=== PATIENT | male | born 1945 | race Caucasian/White ===

== ENCOUNTER → 2017-06-13 12:59 | Outpatient (CLI) | payer MEDICARE, SELFPAY ==
[2016-08-09 08:56] VITALS: BMI 28.8
--- NOTE | 2017-06-13 13:03 | ECHOD_ITS ---
Reason For Study: MV DISORDER Procedure This was a 2D Doppler, Color Flow transthoracic echocardiogram. Contrast injection was performed. Exam performed in department. Left Ventricle Mildly dilated left ventricle. The estimated ejection fraction is 45-50 %. There are regional wall motion abnormalities as specified. Infero-Basal: Severely Hypokinetic. Mid-Posterior: Severely Hypokinetic. Mid-Inferior: Severely Hypokinetic. Right Ventricle Normal size and thickness. Normal systolic function. Atria Normal left atrium. Normal right atrium. Normal atrial septum. Mitral Valve Mild diffuse mitral valve thickening. Peak transmitral valve gradient 12 mmHg. Mean transmitral valve gradient 6 mmHg. Trivial mitral valve insufficiency. An annuloplasty ring is noted in the mitral position. Normal functioning annuloplasty ring with normal gradients for MV repair. Tricuspid Valve Normal tricuspid valve. Trivial tricuspid valve insufficiency. Right ventricular systolic pressure estimated to be 49 mmHg. Mild pulmonary hypertension. Aortic Valve Trisinus/trileaflet aortic valve. Mild diffuse aortic valve thickening. Pulmonic Valve Normal pulmonic valve. Trivial pulmonic valve insufficiency. Great Vessels Normal aortic root. Normal arch. Normal inferior vena cava. Inferior vena cava collapse with sniff. Pericardium/Pleural No pericardial effusion. Medication 22 gauge I.V. with prn adaptor inserted into right arm. Diluted definity 3ml given slow IV push to enhance endocardial definition. MMode/2D Measurements & Calculations LVIDd: 5.1 cm IVSd: 0.93 cm LVOT diam: 2.0 cm LVIDs: 3.7 cm LVPWd: 0.86 cm LVOT area: 3.2 cm2 RVDd: 3.3 cm FS: 26.8 % Ao root diam: 3.3 cm LAV(MOD-bp): 50.2 ml EDV(MOD-sp4): 115.6 ml LA dimension: 3.5 cm LAV(MOD-bp) Indexed: 28.5 ml/m2 ESV(MOD-sp4): 66.4 ml LAV(MOD-sp2): 52.2 ml EF(MOD-sp4): 42.5 % LAV(MOD-sp4): 48.6 ml EDV(MOD-sp2): 118.7 ml SV(MOD-sp4): 49.2 ml SV(MOD-sp2): 33.5 ml EF(MOD-sp2): 28.2 % LA A4 area: 18.1 cm2 RA A4 area: 15.7 cm2 Doppler Measurements & Calculations MV E max gudelia: 161.3 cm/sec MV V2 max: 171.9 cm/sec Ao V2 max: 114.4 cm/sec MV A max gudelia: 127.9 cm/sec MV max P.8 mmHg Ao max P.2 mmHg MV E/A: 1.3 MV V2 mean: 113.7 cm/sec LY(V,D): 2.5 cm2 MV mean P.6 mmHg MV V2 VTI: 53.2 cm LV V1 max: 87.2 cm/sec PA V2 max: 88.4 cm/sec PI end-d gudelia: 136.9 cm/sec LV V1 max P.0 mmHg TR max gudelia: 283.3 cm/sec TR max P.0 mmHg Interpretation Summary Mildly dilated left ventricle. The estimated ejection fraction is 45-50 %. There are regional wall motion abnormalities as specified. Normal functioning annuloplasty ring with normal gradients for MV repair. Right ventricular systolic pressure estimated to be 49 mmHg. Mild pulmonary hypertension. Compared to echo report dated , MV rrepair has taken place with trivial remaiining MR. RVSP has increased from 34 to 49 mm Hg. Ordering Physician: Yemi Cristina Referring Physician: OC ARMENTA MD Performed By: Annita Mcfadden RDCS, RVT
== END ==
PROVIDERS: Family Provider Internal Medicine; PCP Internal Medicine; Visit Provider Internal Medicine Cardiovascular Disease
DX: I34.8 Other nonrheumatic mitral valve disorders (principal)
CPT/HCPCS: 93306; Q9957; A4216; C8929

== ENCOUNTER 2017-08-12 07:23 | Day surgery (SDC) | payer MEDICARE, SELFPAY ==
[2016-08-09 08:56] VITALS: BMI 28.8
[2017-08-12 07:43] VITALS: BP 126/72; PULSE 70; RESP 16; TEMP 36.6; O2SAT 100; BMI 26.1
[2017-08-12 08:45] VITALS: BP 109/68; BP 126/72; PULSE 67; RESP 16; TEMP 36.4; O2SAT 100
[2017-08-12 08:50] VITALS: BP 124/70; BP 126/72; PULSE 67; RESP 16; O2SAT 100
[2017-08-12 08:55] VITALS: BP 125/74; BP 126/72; PULSE 70; RESP 18; O2SAT 100
[2017-08-12 09:00] VITALS: BP 123/73; BP 126/72; PULSE 74; RESP 16; TEMP 36.8; O2SAT 99
--- NOTE | 2017-08-12 09:17 | PCM.OPRPT ---
Problem List (1) Screen for colon cancer Status: Acute Report of Operation Date of Procedure: 08/12/17 Pre-Operative Diagnosis: Screening colonoscopy Post-Operative Diagnosis: Diverticulosis Surgery/Procedure Performed:: Colonoscopy Description of Procedure: The major risks and benefits associated with the procedure were explained to the patient in detail. The patient verbalized understanding and agreement with the same. The patient was brought to the endoscopy suite. After adequate sedation was achieved, the patient was placed in the left lateral decubitus position and a digital rectal exam was performed. This examination was within normal limits. A well-lubricated colonoscope was then inserted into the rectum and advanced under direct visualization to the level of the cecum. The bowel prep was good. The cecum was identified by both visual and anatomic landmarks. A photograph was taken of the end of the cecum. The scope was then fully withdrawn while examining the color, texture, anatomy and integrity of the mucosa from the cecum to the anal canal. The findings were consistent with normal colonic mucosa. Patient did have diverticulosis of the sigmoid colon. Over 6 minutes were taken to examine the colonic mucosa. The patient did have diverticulosis of the sigmoid colon. Upon reaching the rectum the scope was retroflexed to examine the distal rectal vault. The scope was then straightened and was completely retrieved upon exiting the anal canal and the procedure was terminated. The patient was then transferred to the recovery room in stable condition. Recommendations for follow up: no need for further screening colonoscopy
[2017-08-12 09:40] VITALS: BP 126/72
--- NOTE | 2017-08-15 10:14 | H&P.OPEN ---
Past Medical/Surgical History - Planned Operation Planned Operative Procedure/s: colonoscopy Date of Operative Procedure: 08/12/17 Permit Signed: No S.O.S: No Is This Patient Having a Total Joint: No - Previous Hospitalizations/Surgeries HX Hospitalizations: Yes HX of Surgeries: hernia repair. open heart/repair of mitral valve 2016. heart stent 2016 Any Problems With Anesthesia: No You/Your Family Experience Fever (Hyperthermia) With Anes: No Cholinesterase deficiency: No - Cardiovascular Hx Chest Pain within Last 2 months: No Hx of Irregular Heartbeat and/or Afib: No - murmur/follows with dr martin/last visit 02/2017 Hx Heart Attack: Yes - 2017 Hx Congestive Heart Failure: No Hx Rheumatic Fever: No Hx Hypertension: Yes - controlled with meds Hx Internal Defibrillator: No Hx Pacemaker: No Hx Cardiac Catheterization: Yes - 2016 [facility] What facility was last heart cath performed: [facility] Date of last Heart Cath: 2016 Hx Cardiac Surgery/Stents/Etc.: Yes - mitral valve repair and stent 2016 Hx Stress Test: No - echo 2018 [facility] 2016 HX Edema: No Hx Pain in Legs when Walking/Leg Cramps: Yes - cramps prn - Respiratory Chronic Cough: No HX of Shortness of Breath: No Hoarseness: No Hx Chronic Obstructive Pulmonary Disease (COPD): No Hx Asthma: No Hx Emphysema: No Hx Sleep Apnea: No CPAP: No BIPAP: No Hx Oxygen Use at Home: No Hx Respiratory Tract Infection/Cold (presently): No Do You Snore Loudly (louder than talking or can be heard): Yes Do You Often Feel Tired/ Fatigued/ Sleepy Dring Daytime?: Yes Has Anyone Observed You Stop Breathing During Sleep?: Yes Result (for STOP score): Positive Hx Smoking: No Smoking Status: Never smoker - Gastrointestinal Hx Gastroesophageal Reflux: Yes Controlled With Meds: Yes Hx Gastrointestinal Disorders: No Hx Gastrointestinal Bleed: No Hx Ulcer: No Hx Hiatal Hernia: Yes Difficulty Chewing/Swallowing: Yes - in the past Recent Onset of Swallowing Problems: No Special diet followed at home: No Hx Unplanned Weight Loss of 20#: No HX Unplanned Weight Gain of 20#: No - Neurological Hx Seizures: No HX Syncope/Blackout Spells/Unconsciousness: No Hx CVA/Stroke: No Hx Transient Ischemic Attacks (TIA): No Hx Multiple Sclerosis: No Hx Parkinson's Disease: No Hx Head/Neck Injury: No Hx Headaches: No Hx Back Injury/Pain: Yes - lower back pain in the past Recent Onset of Speech Difficulty: No Restless Legs: No Does patient have nerve stimulator: No Patient instructed to have device shut off: No Rep notified?: No - Blood Disorder Hx Leukemia: No Bleeding Tendencies: No Hx Deep Vein Thrombosis: No Hx High Cholesterol: Yes - on med Blood Transmitted Disease: No Hx Hepatitis: No Hx Cirrhosis: No Hx Anemia: No Hx Blood Disorders: No - Genitourinary Hx Renal Disease: No Hx Dialysis: No - Musculoskeletal Hx Arthritis: Yes Hx Rheumatoid Arthritis: No Hx Gout: No Recent Onset of an Orthopedic Problem: No - Endocrine Hx Diabetes: No Thyroid Disease: No Hx Steroid Therapy: No - Psycho/Social Hx Substance Use: No Hx Alcohol Use: No Hx Anxiety: No Hx Depression: No Mental Illness: No Hx Dementia: No - Miscellaneous Hx Cancer: No Recent Exposure to Contagious Disease: No Active MRSA: No Hx of C-Diff: No Any Loose Teeth: No Allergies No Known Allergies Allergy (Verified 07/12/17 12:50) Home Medications Medication Instructions Recorded Aspirin [Aspirin, Baby] 81 mg PO QHS 08/07/16 Esomeprazole Mag Trihydrate 20 mg PO DAILY 08/07/16 [Nexium] Ticagrelor [Brilinta] 90 mg PO BID #60 tab 08/10/16 losartan 50 mg tablet 50 mg PO QDAY #90 tab 05/16/17 atorvastatin 80 mg tablet 80 mg PO QHS #30 tab 07/25/17 metoprolol tartrate 25 mg tablet 12.5 mg PO BID #90 tab 07/25/17 Amlodipine Besylate [Norvasc] 5 mg PO QHS 08/08/17 Fluticasone 0.05% [Flonase Nasal 2 spray NASAL DAILY PRN 08/08/17 [place]] Maternal Family History: Family History (Last Updated 07/12/17 @ 12:49 by Aylin Maciel) Mother CVA (cerebral vascular accident) Brain tumor (benign) Hypertension No pertinent history Paternal Family History: Family History (Last Updated 07/12/17 @ 12:49 by Aylin Maciel) Mother CVA (cerebral vascular accident) Brain tumor (benign) Hypertension No pertinent history - Discharge Is Pt Admitted From a Custodial, or a [facility]: No Who Could Help: After D/C, Where Do you Plan to Go: Return Home - From the PAT History Number of Risk Factors: 2 - Physical Exam General: Alert, Oriented x3, Cooperative Lungs: Normal air movement Cardiovascular: Regular rate, Regular Rhythm Abdomen: Soft, Non Tender, Non-Distended Vital Signs Temp Pulse Resp BP Pulse Ox 98.2 F 74 16 123/73 H 99 08/12/17 09:00 08/12/17 09:00 08/12/17 09:00 08/12/17 09:00 08/12/17 09:00 Oxygen Delivery Method Room Air Weight: 156 lb 15.506 oz Body Mass Index (BMI) 26.1 Assessment/Plan 72-year-old male for screening colonoscopy 1. Patient here for screening colonoscopy. He did get clearance from Dr. Martin to come off this Brilinta for surgery. I will give him a dose of IV antibiotics for his mitral valve. 2. I explained endoscopy in detail to the patient. I explained the risks including but not limited to stroke or heart attack with anesthesia, perforation of the GI tract, bleeding, infection. I explained that any of these could necessitate further emergency surgery. The patient understands and all questions were answered sufficiently. The patient wishes to proceed with procedure. Stephen Canchola MD Pager: [facility] [address] [place] [address], [address] [place] [address] Office: Surgery Risks - Colonoscopy Risks Include but are not Limited To: Risks include but are not limited to: Bleeding, perforation requiring further surgery, inability to complete colonoscopy requiring barium enema.
--- NOTE | 2017-08-15 10:17 | HP.PCM_ITS ---
Past Medical/Surgical History - Planned Operation Planned Operative Procedure/s: colonoscopy Date of Operative Procedure: 08/12/17 Permit Signed: No S.O.S: No Is This Patient Having a Total Joint: No - Previous Hospitalizations/Surgeries HX Hospitalizations: Yes HX of Surgeries: hernia repair. open heart/repair of mitral valve 2016. heart stent 2016 Any Problems With Anesthesia: No You/Your Family Experience Fever (Hyperthermia) With Anes: No Cholinesterase deficiency: No - Cardiovascular Hx Chest Pain within Last 2 months: No Hx of Irregular Heartbeat and/or Afib: No - murmur/follows with dr martin/last visit 02/2017 Hx Heart Attack: Yes - 2017 Hx Congestive Heart Failure: No Hx Rheumatic Fever: No Hx Hypertension: Yes - controlled with meds Hx Internal Defibrillator: No Hx Pacemaker: No Hx Cardiac Catheterization: Yes - 2016 [facility] What facility was last heart cath performed: [facility] Date of last Heart Cath: 2016 Hx Cardiac Surgery/Stents/Etc.: Yes - mitral valve repair and stent 2016 Hx Stress Test: No - echo 2018 [facility] 2016 HX Edema: No Hx Pain in Legs when Walking/Leg Cramps: Yes - cramps prn - Respiratory Chronic Cough: No HX of Shortness of Breath: No Hoarseness: No Hx Chronic Obstructive Pulmonary Disease (COPD): No Hx Asthma: No Hx Emphysema: No Hx Sleep Apnea: No CPAP: No BIPAP: No Hx Oxygen Use at Home: No Hx Respiratory Tract Infection/Cold (presently): No Do You Snore Loudly (louder than talking or can be heard): Yes Do You Often Feel Tired/ Fatigued/ Sleepy [place] Daytime?: Yes Has Anyone Observed You Stop Breathing During Sleep?: Yes Result (for STOP score): Positive Hx Smoking: No Smoking Status: Never smoker - Gastrointestinal Hx Gastroesophageal Reflux: Yes Controlled With Meds: Yes Hx Gastrointestinal Disorders: No Hx Gastrointestinal Bleed: No Hx Ulcer: No Hx Hiatal Hernia: Yes Difficulty Chewing/Swallowing: Yes - in the past Recent Onset of Swallowing Problems: No Special diet followed at home: No Hx Unplanned Weight Loss of 20#: No HX Unplanned Weight Gain of 20#: No - Neurological Hx Seizures: No HX Syncope/Blackout Spells/Unconsciousness: No Hx CVA/Stroke: No Hx Transient Ischemic Attacks (TIA): No Hx Multiple Sclerosis: No Hx Parkinson's Disease: No Hx Head/Neck Injury: No Hx Headaches: No Hx Back Injury/Pain: Yes - lower back pain in the past Recent Onset of Speech Difficulty: No Restless Legs: No Does patient have nerve stimulator: No Patient instructed to have device shut off: No Rep notified?: No - Blood Disorder Hx Leukemia: No Bleeding Tendencies: No Hx Deep Vein Thrombosis: No Hx High Cholesterol: Yes - on med Blood Transmitted Disease: No Hx Hepatitis: No Hx Cirrhosis: No Hx Anemia: No Hx Blood Disorders: No - Genitourinary Hx Renal Disease: No Hx Dialysis: No - Musculoskeletal Hx Arthritis: Yes Hx Rheumatoid Arthritis: No Hx Gout: No Recent Onset of an Orthopedic Problem: No - Endocrine Hx Diabetes: No Thyroid Disease: No Hx Steroid Therapy: No - Psycho/Social Hx Substance Use: No Hx Alcohol Use: No Hx Anxiety: No Hx Depression: No Mental Illness: No Hx Dementia: No - Miscellaneous Hx Cancer: No Recent Exposure to Contagious Disease: No Active MRSA: No Hx of C-Diff: No Any Loose Teeth: No Allergies No Known Allergies Allergy (Verified 07/12/17 12:50) Home Medications Medication Instructions Recorded Aspirin [Aspirin, Baby] 81 mg PO QHS 08/07/16 Esomeprazole Mag Trihydrate 20 mg PO DAILY 08/07/16 [Nexium] Ticagrelor [Brilinta] 90 mg PO BID #60 tab 08/10/16 losartan 50 mg tablet 50 mg PO QDAY #90 tab 05/16/17 atorvastatin 80 mg tablet 80 mg PO QHS #30 tab 07/25/17 metoprolol tartrate 25 mg tablet 12.5 mg PO BID #90 tab 07/25/17 Amlodipine Besylate [Norvasc] 5 mg PO QHS 08/08/17 Fluticasone 0.05% [Flonase Nasal 2 spray NASAL DAILY PRN 08/08/17 [facility]] Maternal Family History: Family History (Last Updated 07/12/17 @ 12:49 by Aylin Maciel) Mother CVA (cerebral vascular accident) Brain tumor (benign) Hypertension No pertinent history Paternal Family History: Family History (Last Updated 07/12/17 @ 12:49 by Aylin Maciel) Mother CVA (cerebral vascular accident) Brain tumor (benign) Hypertension No pertinent history - Discharge Is Pt Admitted From a [facility], or a [facility]: No Who Could Help: After D/C, Where Do you Plan to Go: Return Home - From the PAT History Number of Risk Factors: 2 - Physical Exam General: Alert, Oriented x3, Cooperative Lungs: Normal air movement Cardiovascular: Regular rate, Regular Rhythm Abdomen: Soft, Non Tender, Non-Distended Vital Signs Temp Pulse Resp BP Pulse Ox 98.2 F 74 16 123/73 H 99 08/12/17 09:00 08/12/17 09:00 08/12/17 09:00 08/12/17 09:00 08/12/17 09:00 Oxygen Delivery Method Room Air Weight: 156 lb 15.506 oz Body Mass Index (BMI) 26.1 Assessment/Plan 72-year-old male for screening colonoscopy 1. Patient here for screening colonoscopy. He did get clearance from Dr. Martin to come off this Brilinta for surgery. I will give him a dose of IV antibiotics for his mitral valve. 2. I explained endoscopy in detail to the patient. I explained the risks including but not limited to stroke or heart attack with anesthesia, perforation of the GI tract, bleeding, infection. I explained that any of these could necessitate further emergency surgery. The patient understands and all questions were answered sufficiently. The patient wishes to proceed with procedure. Stephen Canchola MD Pager: [facility] [address] [place] [address], [address] [place] [address] Office: Surgery Risks - Colonoscopy Risks Include but are not Limited To: Risks include but are not limited to: Bleeding, perforation requiring further surgery, inability to complete colonoscopy requiring barium enema.
== END 2017-08-12 09:52 | disposition home or self-care (01) ==
LOC: EN 07:24 → AC 07:25
PROVIDERS: Family Provider Internal Medicine; PCP Internal Medicine; Visit Provider Surgery
PROC: 0DJD8ZZ Inspection of Lower Intestinal Tract, Via Natural or Artificial Opening Endoscopic (ICD-10-PCS; CPT 45378; principal; 2017-08-12 08:25)
DX: Z12.11 Encounter for screening for malignant neoplasm of colon (principal); K57.30 Diverticulosis of large intestine without perforation or abscess without bleeding; I25.2 Old myocardial infarction; I10 Essential (primary) hypertension; K21.9 Gastro-esophageal reflux disease without esophagitis; E78.00 Pure hypercholesterolemia, unspecified; M19.90 Unspecified osteoarthritis, unspecified site; R01.1 Cardiac murmur, unspecified; Z95.2 Presence of prosthetic heart valve; Z79.82 Long term (current) use of aspirin; Z79.899 Other long term (current) drug therapy
CPT/HCPCS: G0121; J7120; J3490

== ENCOUNTER 2018-06-08 20:36 | Inpatient (IN) | payer MEDICARE, SELFPAY ==
[2016-08-09 08:56] VITALS: BMI 28.8
[2018-04-26 13:33] VITALS: BMI 26.9
[2018-06-08 20:38] VITALS: BP 170/97; PULSE 99; RESP 18; TEMP 36.8; O2SAT 99; BMI 25.7
[2018-06-08 20:59] VITALS: BP 191/90; PULSE 97; RESP 19; O2SAT 100
--- NOTE | 2018-06-08 21:04 | EKG12_ITS ---
Test Reason : Blood Pressure : / mmHG Vent. Rate : 101 BPM Atrial Rate : 101 BPM P-R Int : 144 ms QRS Dur : 140 ms QT Int : 392 ms P-R-T Axes : 072 -83 055 degrees QTc Int : 508 ms Sinus tachycardia Right bundle branch block Left anterior fascicular block Bifascicular block Abnormal ECG Confirmed by JOSE ANDRADE, SHELLY ([id number]), sports editor SARAVANAN SPENCE ([id number]) on 06/12/2018 1:12:10 PM Referred By: Confirmed By:SHELLY GARCIA MD
--- NOTE | 2018-06-08 21:04 | RAD_ITS ---
STUDY: X-RAY CHEST REASON FOR EXAM: Male, 72 years old. Chest pain TECHNIQUE: Portable chest COMPARISON: 08/10/1969 FINDINGS: There are sternal wires. There are benign calcified mediastinal lymph nodes. The lungs are clear and expanded. There is no demonstrated pleural abnormality. Normal size heart. Normal mediastinum and catina. Normal visualized pulmonary arteries. Normal visualized aortic arch and descending thoracic aorta. Normal visualized thoracic spine. Normal visualized ribs, clavicles, and shoulders. There is no demonstrated abnormality of the visualized soft tissue structures of the upper abdomen. RAD/Chest 1 View (Portable) IMPRESSION: No acute process Electronically Signed: Jose Spicer, at 22:05 EST Tel , Service support ,
[2018-06-08 21:28] LABS: Absolute Lymphocyte Count 1.29 X10^3/ul (0.83-4.51); Absolute Neutrophil Count 6.4 X10^3/uL (2.0-7.7); Basophil# 0.02 X10^3/uL; Basophil% 0.2 % (0-1); Eosinophil# 0.16 X10^3/uL; Eosinophils% 1.8 % (0-5); Hematocrit 43.7 % (40-54); Hemoglobin 14.3 g/dl (13.0-16.5); Lymphocyte # 1.29 X10^3/ul (4.0); Lymphocyte % 14.6 % (19-41); Mean Corp Hgb Conc 32.7 g/gl (32-36); Mean Corpuscular Hgb 27.6 pg (27.0-32.0); Mean Corpuscular Volume 84.2 fL (80-94); Monocyte# 0.91 X10^3/uL; Monocyte% 10.3 % (0-10); Neutrophil # 6.41 X10^3/uL (2.7-7.7); Neutrophil % 72.9 % (47-70); Platelet Count 227 K/mm3 (150-450); RBC Distribution Width CV 13.9 % (11.6-14.6); Red Blood Count 5.19 M/mm3 (4.6-6.2); White Blood Count 8.8 K/mm3 (4.4-11.0)
[2018-06-08] MEDS: Aspirin 81 MG TAB.CHEW 324 MG PO (21:35)
[2018-06-08 21:41] LABS: Anion Gap 7 (5-15); BUN 16 mg/dL (7-18); BUN/Creat Ratio 11.2 RATIO (10-20); Calcium,Total 8.8 mg/dL (8.5-10.1); Chloride 108 mmol/L (98-107); Creatinine, Serum 1.43 mg/dL (0.70-1.30); EST Glomerular Filtration Rate 51 mL/min (>60); Est Glom Filt Rate - Afr Amer 62 mL/min (>60); Estimated Creatinine Clearance 39.42 ml/min; Glucose 99 mg/dL (74-106); Lipase 120 U/L (73-393); Potassium 3.5 mmol/L (3.5-5.1); Sodium Level 141 mmol/L (136-145)
[2018-06-08 21:48] LABS: POSITIVE COUNT NO; POSITIVE DIFFERENTIAL NO; POSITIVE MORPHOLOGY NO
--- NOTE | 2018-06-08 21:50 | CT_ITS ---
STUDY: CT ABDOMEN AND PELVIS WITH CONTRAST REASON FOR EXAM: Male, 72 years old. Abdominal pain RADIATION DOSAGE (If Supplied By Facility): CTDIvol = ( 17.46 ) mGy, DLP = ( 1868.48 ) mGycm TECHNIQUE: Transaxial images were obtained from the dome of the diaphragm to the symphysis pubis without oral contrast. Isovue 300 100ML IV was administered. Sagittal and coronal images were reconstructed. Individualized dose optimization techniques were used for this CT. COMPARISON: None. FINDINGS: There is a small right pleural effusion and there is right basilar subsegmental atelectasis. There are sternal wires. There is likely left atrial clipping, epidural stimulator wire There are 3 2 mm hypodensities within the right lobe of the liver. There are calcified gallstones. There are likely small calculi within the cystic duct. There is Mild stranding within the fat around the gallbladder. There may be mild gallbladder wall thickening. There is mild gallbladder distention. Normal spleen. Normal pancreas. Normal bilateral adrenal glands. Normal right kidney. Normal left kidney. There is a small hiatal hernia. There is mild wall thickening of the lower esophagus. Normal visualized stomach. Normal small intestine. There is colonic diverticulosis. The appendix is visualized and appears normal. Normal abdominal aorta. Normal inferior vena cava. Normal retroperitoneum. Normal urinary bladder. Normal abdominal wall. There are multilevel degenerative changes of the lumbar spine. CT/Abdomen/Pelvis W IV Cont ONLY IMPRESSION: Findings suspicious for for acute cholecystitis with calcified gallstones likely small stones in the cystic duct, mild gallbladder distention, mild stranding around the gallbladder and possible mild gallbladder wall thickening, this should be correlated with physical exam and right upper quadrant ultrasound Colonic diverticulosis no diverticulitis small hiatal hernia, wall thickening of the lower esophagus which may be secondary to reflux esophagitis however pathologic wall thickening cannot be excluded further evaluation with endoscopy or barium swallow recommended Previous cardiothoracic surgery sternal wires, atrial clipping, epidural stimulator wire 3 an 2 mm hypodensities within the liver too small to characterize most likely hepatic cysts Periumbilical fatty hernia Small right pleural effusion and right basilar subsegmental atelectasis Multilevel degenerative changes of the lumbar spine Electronically Signed: Jose Spicer, at 23:45 EST Tel , Service support ,
--- NOTE | 2018-06-08 21:50 | CT_ITS ---
STUDY: CTA CHEST REASON FOR EXAM: Male, 72 years old. Abdominal pain chest pain, hypertension RADIATION DOSAGE (If Supplied By Facility): CTDIvol = ( 17.46 ) mGy, DLP = ( 1868.48 ) mGycm TECHNIQUE: The examination was performed with the intravenous administration of Isovue 370 100ML IV. Post-processing of the angiographic images was performed, with multiplanar reformation and 3D reconstruction. Individualized dose optimization techniques were used for this CT. COMPARISON: None. FINDINGS: There is scattered pulmonary scarring and a few scattered bulla. There are 5 mm and smaller scattered pulmonary nodules within the upper, right middle and lower lobes. Normal enhancement of the main pulmonary artery and right and left pulmonary arteries. Normal enhancement of the bilateral peripheral pulmonary arteries. There is no demonstrated pulmonary embolism. Normal thoracic aorta and visualized great vessels. There is no demonstrated aortic dissection. Normal heart and pericardium. Normal mediastinum. Normal hilar regions. Normal visualized trachea and bronchi. The lungs are well expanded. Normal pulmonary parenchyma. Normal pleura. Normal chest wall structures. Normal osseous structures. There are calcified gallstones. There are sternal wires and mediastinal clips. There is calcific coronary atherosclerosis. There is likely prior atrial clipping. There is small right pleural effusion with right basilar subsegmental atelectasis. There are calcified gallstones. CT/CTA Chest W/WO Contrast IMPRESSION: Normal CTA chest examination, without a demonstrated pulmonary embolism or arterial dissection. Scattered small 5 mm and smaller pulmonary nodules likely benign six-month follow-up recommended for stability Scattered mild pulmonary scarring and few scattered bulla small right pleural effusion, right basilar subsegmental atelectasis Cholelithiasis Electronically Signed: Jose Spicer, at 23:30 EST Tel , Service support ,
--- NOTE | 2018-06-08 22:50 | ED.VISSUMM ---
- ER Visit Summary Date of Service: 06/08/18 Chief Complaint: Chest pain, abdominal pain. History of Present Illness: The patient is a 72 M presenting with chest pain, abdominal pain, dizziness. Patient states he started having epigastric abdominal pain which radiates to his chest. He also complains of pain between his shoulder blades. He has had dizziness with no syncope. He states this feels similar to his symptoms when he had his MT. He denies shortness of breath. Denies nausea or vomiting. Denies fever or other complaints. He has a history of CAD, MT, CHF, hypertension, hyperlipidemia, GERD, mitral valve repair. Physical Examination: Vitals are stable. Patient is afebrile. Alert no acute distress. HEENT exam is unremarkable. Neck is supple. Lungs are clear and equal bilaterally. Heart is regular rate and rhythm. Abdomen is soft mild epigastric tenderness with no rebound or guarding Extremities are unremarkable. Skin is warm and dry. No focal neurologic deficit. Remainder of exam is unremarkable. Emergency Department Course and Treatment: Patient was given aspirin on arrival. EKG is sinus tachycardia rate of 101 with right bundle branch block, unchanged from previous. CBC, chemistries unremarkable other than creatinine 1.43. Lipase is 120. Troponin is negative. Chest x-ray shows no acute process. CTA chest shows normal CTA chest examination, without a demonstrated pulmonary embolism or arterial dissection. Scattered small 5 mm and smaller pulmonary nodules likely benign six-month follow-up recommended for stability. Scattered mild pulmonary scarring and few scattered bulla small right pleural effusion, right basilar subsegmental atelectasis. Cholelithiasis. CT abdomen pelvis shows findings suspicious for for acute cholecystitis with calcified gallstones likely small stones in the cystic duct, mild gallbladder distention, mild stranding around the gallbladder and possible mild gallbladder wall thickening, this should be correlated with physical exam and right upper quadrant ultrasound. Colonic diverticulosis no diverticulitis, small hiatal hernia, wall thickening of the lower esophagus which may be secondary to reflux esophagitis however pathologic wall thickening cannot be excluded further evaluation with endoscopy or barium swallow recommended Previous cardiothoracic surgery sternal wires, atrial clipping, epidural stimulator wire. Ultrasound is obtained and will be checked out to oncoming physician. Disposition: pending US results Impression: Chest pain/abdominal pain This note was generated with [employer] dictation software. It may contain incorrect words, spelling, and punctuation that were not noted in review of the chart prior to signing ED Disposition - Plan for ED Patient: Referrals: Javier Silvestre MD [Primary Care Provider] -
--- NOTE | 2018-06-08 22:53 | ED.DCSUM_ITS ---
- ER Visit Summary Date of Service: 06/08/18 Chief Complaint: Chest pain, abdominal pain. History of Present Illness: The patient is a 72 M presenting with chest pain, abdominal pain, dizziness. Patient states he started having epigastric abdominal pain which radiates to his chest. He also complains of pain between his shoulder blades. He has had dizziness with no syncope. He states this feels similar to his symptoms when he had his RI. He denies shortness of breath. Denies nausea or vomiting. Denies fever or other complaints. He has a history of CAD, RI, CHF, hypertension, hyperlipidemia, GERD, mitral valve repair. Physical Examination: Vitals are stable. Patient is afebrile. Alert no acute distress. HEENT exam is unremarkable. Neck is supple. Lungs are clear and equal bilaterally. Heart is regular rate and rhythm. Abdomen is soft mild epigastric tenderness with no rebound or guarding Extremities are unremarkable. Skin is warm and dry. No focal neurologic deficit. Remainder of exam is unremarkable. Emergency Department Course and Treatment: Patient was given aspirin on arrival. EKG is sinus tachycardia rate of 101 with right bundle branch block, unchanged from previous. CBC, chemistries unremarkable other than creatinine 1.43. Lipase is 120. Troponin is negative. Chest x-ray shows no acute process. CTA chest shows normal CTA chest examination, without a demonstrated pulmonary embolism or arterial dissection. Scattered small 5 mm and smaller pulmonary nodules likely benign six-month follow-up recommended for stability. Scattered mild pulmonary scarring and few scattered bulla small right pleural effusion, right basilar subsegmental atelectasis. Cholelithiasis. CT abdomen pelvis shows findings suspicious for for acute cholecystitis with calcified gallstones likely small stones in the cystic duct, mild gallbladder distention, mild stranding around the gallbladder and possible mild gallbladder wall thickening, this should be correlated with physical exam and right upper quadrant ultrasound. Col onic diverticulosis no diverticulitis, small hiatal hernia, wall thickening of the lower esophagus which may be secondary to reflux esophagitis however pathologic wall thickening cannot be excluded further evaluation with endoscopy or barium swallow recommended Previous cardiothoracic surgery sternal wires, atrial clipping, epidural stimulator wire. Ultrasound is obtained and will be checked out to oncoming physician. Disposition: pending US results Impression: Chest pain/abdominal pain This note was generated with [employer] software. It may contain incorrect words, spelling, and punctuation that were not noted in review of the chart prior to signing ED Disposition - Plan for ED Patient: Referrals: Javier Silvestre MD [Primary Care Provider] -
[2018-06-08 23:25] VITALS: BP 133/76; PULSE 99; RESP 14; O2SAT 95
--- NOTE | 2018-06-08 23:49 | US_ITS ---
HISTORY: ABD PAIN EXAM/TECHNIQUE: US Abdomen RUQ (limited): COMPARISON: 06/08/18 CT abdomen pelvis. FINDINGS: # of images incl. paperwork: 113 Liver with no acute findings. Scattered granulomas again demonstrated. Gallbladder distended with several small gallstones including extending into the gallbladder neck, and with sludge. Olivares sign was negative. By my measurement the gallbladder wall measures 4 mm thick. Small amount of pericholecystic fluid. Comment both about 5 mm diameter which is normal. Pancreas obscured by bowel gas. Right kidney normal. Small right pleural effusion is visible. US/Gallbladder IMPRESSION: Ultrasound findings (distended gallbladder with gallstones and wall thickening and pericholecystic fluid) concerning for acute calculus cholecystitis; although Olivares sign was negative as per the technologist. at 0100 Reported and signed by: Fred Mcginnis MD Electronically Signed: Fred Mcginnis, at 0:59 EST Tel , Service support ,
[2018-06-09] VITALS (16 sets, daily range): BP systolic 90–144; BP diastolic 60–95; PULSE 82–111; RESP 14–19; TEMP 36.5–38.2; O2SAT 89–100; BMI 26.6
[2018-06-09 00:10] LABS: AST(SGOT) 32 U/L (15-37); Alanine Aminotransfer ALT/SGPT 32 U/L (16-61); Albumin, Serum 4.1 g/dL (3.2-5.0); Alkaline Phosphatase 108 U/L (45-117); Bilirubin, Direct 0.14 mg/dL (0.00-0.30); Globulin 3.9 g/dL (2.2-4.2)
--- NOTE | 2018-06-09 02:07 | PCM.HP.STD ---
Problem List (1) Acute cholecystitis Status: Acute History of Present Illness Date of Admission: 06/09/18 The patient is a 72 year old M who had acute onset epigastric pain this afternoon. The patient reports no nausea or vomiting. Patient did report he had right upper quadrant pain when the ultrasound was being performed. He is still complaining of epigastric tenderness but he says it has improved. Past Medical History Past Medical History (Chronic Problems): Chronic Problems (Last Reviewed 10/24/17 @ 13:33 by Jennifer Turner) GERD (gastroesophageal reflux disease) (Chronic) Hyperlipemia (Chronic) History of mitral valve repair (Chronic 01/19/17) MVR w/ Quadrangular resection of the P2 scallop and placement of a 26 mm Guilherme EdwardsAnnuloplasty Band w/ PENELOPE Occlusion using a 40mm AtriClip 01/19/2017 Naif Caicedo Right bundle branch block (Chronic) Nonrheumatic mitral (valve) insufficiency (Chronic) History of coronary artery stent placement (Chronic 08/07/16) PCI-JOSHUA-Mid Cx w/ 4.0 x 20 mm and 4.0 x 16 mm Synergy MR JOSHUA 08/07/16 Atherosclerosis of coronary artery of platinum heart without angina pectoris (Chronic) PCI-JOSHUA-Mid Cx w/ 4.0 x 20 mm and 4.0 x 16 mm Synergy MR JOSHUA 08/07/16 Chronic diastolic (congestive) heart failure (Chronic) Hyperlipidemia (Chronic) Hypertension (Chronic) Non-ST elevated myocardial infarction (Chronic) Medical History: Medical History (Last Reviewed 10/24/17 @ 13:33 by Jennifer Turner) Hyperlipemia (Chronic) E78.5 Right bundle branch block (Chronic) I45.10 Nonrheumatic mitral (valve) insufficiency (Chronic) I34.0 Atherosclerosis of coronary artery of platinum heart without angina pectoris (Chronic) I25.10 PCI-JOSHUA-Mid Cx w/ 4.0 x 20 mm and 4.0 x 16 mm Synergy MR JOSHUA 08/07/16 Chronic diastolic (congestive) heart failure (Chronic) I50.32 Hyperlipidemia (Chronic) E78.5 Hypertension (Chronic) I10 Non-ST elevated myocardial infarction (Chronic) I21.4 GERD (gastroesophageal reflux disease) K21.9 Allergies No Known Allergies Allergy (Verified 06/08/18 20:40) Home Medications: Ambulatory Orders Medication Instructions Recorded Aspirin [Aspirin, Baby] 81 mg PO QHS 08/07/16 Esomeprazole Mag Trihydrate 20 mg PO DAILY 08/07/16 [Nexium] amlodipine 5 mg tablet 5 mg PO QHS #90 tab 04/26/18 atorvastatin 80 mg tablet 80 mg PO QHS #90 tab 04/26/18 metoprolol tartrate 25 mg tablet 12.5 mg PO BID #90 tab 04/26/18 ticagrelor 90 mg tablet 90 mg PO BID #180 tab 05/03/18 Losartan Potassium [Cozaar] 50 mg PO DAILY 06/08/18 Surgical History: Surgical History (Last Updated 12/06/17 @ 17:46 by Bela Jacob) History of mitral valve repair (Chronic) Onset Date: 01/19/17 Z98.890 MVR w/ Quadrangular resection of the P2 scallop and placement of a 26 mm Guilherme EdwardsAnnuloplasty Band w/ PENELOPE Occlusion using a 40mm AtriClip 01/19/2017 A Rex Caicedo History of coronary artery stent placement (Chronic) Onset Date: 08/07/16 Z95.5 PCI-JOSHUA-Mid Cx w/ 4.0 x 20 mm and 4.0 x 16 mm Synergy MR JOSHUA 08/07/16 History of colonoscopy Z98.890 08/12/2017 - Dr Canchola History of hernia repair Z98.890, Z87.19 History of right and left heart catheterization Onset Date: 12/15/16 Z98.890 Surgical History: herniorrhaphy, - Smoking Status: Never smoker - *Family History Maternal Family History: Family History (Last Reviewed 10/24/17 @ 13:33 by Jennifer Turner) Mother CVA (cerebral vascular accident) Brain tumor (benign) Hypertension History Items: No pertinent history Paternal Family History: Family History (Last Reviewed 10/24/17 @ 13:33 by Jennifer Turner) Mother CVA (cerebral vascular accident) Brain tumor (benign) Hypertension History Items: No pertinent history Review of Systems Constitutional: Denies: Anorexia, Chills, Fever HEENT: Denies: Difficulty Swallowing Respiratory: Denies: Cough, Shortness of Breath Gastrointestinal: Reports: Abdominal Pain. Denies: Nausea, Vomiting Genitourinary: Denies: Dysuria Skin: Denies: Jaundice Neurological: Denies: Blurred vision Psychiatric: Denies: Anxiety Hematologic/ Lymphatic: Denies: Anemia VTE Information - Inpt Only VTE Present on Admission: No VTE Mechan Device Prophylaxis: SCD's Patient Problems: Active and Suspected Problems (Last Reviewed 10/24/17 @ 13:33 by Jennifer Turner) Acute cholecystitis (Acute) - Physical Exam General: Alert, Oriented x3, Cooperative, No apparent distress HEENT: Atraumatic, PERRLA Neck: No JVD Lungs: Normal air movement Cardiovascular: Regular rate, Regular Rhythm Abdomen: Soft, Non-Distended, Tender - Epigastric tenderness. No guarding or rebound. Negative Olivares sign Extremities: No edema Skin: No rashes Musculoskeletal: No Muscle Wasting Neurological: Cranial nerves II-XII grossly intact Psych/Mental Status: Normal Affect Vital Signs Temp Pulse Resp BP Pulse Ox 98.2 F 99 14 133/76 H 95 06/08/18 20:38 06/08/18 23:25 06/08/18 23:25 06/08/18 23:25 06/08/18 23:25 Oxygen Delivery Method Room Air Weight: 155 lb Body Mass Index (BMI) 25.7 Laboratory Tests Past 24 Hrs 06/08/18 06/08/18 06/08/18 20:56 20:56 20:56 WBC 8.8 RBC 5.19 Hgb 14.3 Hct 43.7 MCV 84.2 MCH 27.6 MCHC 32.7 RDW 13.9 RDW Differential 43.0 Plt Count 227 MPV 10.0 Immature Gran % (Auto) 0.200 Neut % (Auto) 72.9 H Lymph % (Auto) 14.6 L Jack % (Auto) 10.3 H Eos % (Auto) 1.8 Baso % (Auto) 0.2 Absolute Neuts (auto) 6.4 Absolute Lymphs (auto) 1.29 Total Counted Not Reportable Sodium 141 Potassium 3.5 Chloride 108 H Carbon Dioxide 26.0 Anion Gap 7 BUN 16 Creatinine 1.43 H Estim Creat Clear Calc 39.42 Est GFR (MDRD) Af Amer 62 Est GFR (MDRD) Non-Af 51 L BUN/Creatinine Ratio 11.2 Glucose 99 Calcium 8.8 Total Bilirubin 0.60 Direct Bilirubin 0.14 AST 32 ALT 32 Alkaline Phosphatase 108 Troponin I < 0.015 Total Protein 8.0 Albumin 4.1 Globulin 3.9 Lipase 120 Clinical Impression(s) from Imaging Studies Chest X-Ray 06/08/18 21:04 IMPRESSION: No acute process Electronically Signed: Jose Spicer, at 22:05 EST Tel , Service support , Abdomen/Pelvis CT 06/08/18 21:50 IMPRESSION: Findings suspicious for for acute cholecystitis with calcified gallstones likely small stones in the cystic duct, mild gallbladder distention, mild stranding around the gallbladder and possible mild gallbladder wall thickening, this should be correlated with physical exam and right upper quadrant ultrasound Colonic diverticulosis no diverticulitis small hiatal hernia, wall thickening of the lower esophagus which may be secondary to reflux esophagitis however pathologic wall thickening cannot be excluded further evaluation with endoscopy or barium swallow recommended Previous cardiothoracic surgery sternal wires, atrial clipping, epidural stimulator wire 3 an 2 mm hypodensities within the liver too small to characterize most likely hepatic cysts Periumbilical fatty hernia Small right pleural effusion and right basilar subsegmental atelectasis Multilevel degenerative changes of the lumbar spine Electronically Signed: Jose Spicer at 23:45 EST Tel , Service support , Chest CTA 06/08/18 21:50 IMPRESSION: Normal CTA chest examination, without a demonstrated pulmonary embolism or arterial dissection. Scattered small 5 mm and smaller pulmonary nodules likely benign six-month follow-up recommended for stability Scattered mild pulmonary scarring and few scattered bulla small right pleural effusion, right basilar subsegmental atelectasis Cholelithiasis Electronically Signed: Jose Spicer at 23:30 EST Tel , Service support , Gallbladder Ultrasound 06/08/18 23:49 IMPRESSION: Ultrasound findings (distended gallbladder with gallstones and wall thickening and pericholecystic fluid) concerning for acute calculus cholecystitis; although Olivares sign was negative as per the technologist. at 0100 Reported and signed by: Fred Mcginnis MD Electronically Signed: Fred Mcginnis, at 0:59 EST Tel , Service support , Assessment/Plan All Active Problems (Last Reviewed 10/24/17 @ 13:33 by Jennifer Turner) Acute cholecystitis (Acute) Screen for colon cancer (Resolved) 72-year-old male with acute cholecystitis 1. The patient had extensive workup in the emergency room. Cardiac enzymes were negative as was a CTA of the chest abdomen and pelvis. The CT revealed mild stranding around the gallbladder and an ultrasound was performed. Gallbladder wall was 3-4 mm with some pericholecystic fluid and gallstones. The patient has a normal white count and normal LFTs. The patient has epigastric tenderness with no Olivares sign. 2. I will admit the patient for observation. I will recheck labs later today and recheck physical exam. The patient is on Brilinta which increases bleeding risk during surgery. If the patient's symptoms improve off pain medication and on antibiotics I am may keep him on antibiotics for a few days off Brilinta and then perform his cholecystectomy. If his white count elevates or his pain worsens I will have to taken to surgery urgently on Brilinta. 3. N.p.o., IV fluids, antibiotics, SCDs, hold Brilinta, PPI. Stephen Canchola MD Pager: [facility] [address] [place] [address], [address] [place] [address] Office:
--- NOTE | 2018-06-09 02:11 | HP.PCM_ITS ---
Problem List (1) Acute cholecystitis Status: Acute History of Present Illness Date of Admission: 06/09/18 The patient is a 72 year old M who had acute onset epigastric pain this afternoon. The patient reports no nausea or vomiting. Patient did report he had right upper quadrant pain when the ultrasound was being performed. He is still complaining of epigastric tenderness but he says it has improved. Past Medical History Past Medical History (Chronic Problems): Chronic Problems (Last Reviewed 10/24/17 @ 13:33 by Jennifer Turner) GERD (gastroesophageal reflux disease) (Chronic) Hyperlipemia (Chronic) History of mitral valve repair (Chronic 01/19/17) MVR w/ Quadrangular resection of the P2 scallop and placement of a 26 mm Guilherme EdwardsAnnuloplasty Band w/ PENELOPE Occlusion using a 40mm AtriClip 01/19/2017 Naif Caicedo Right bundle branch block (Chronic) Nonrheumatic mitral (valve) insufficiency (Chronic) History of coronary artery stent placement (Chronic 08/07/16) PCI-JOSHUA-Mid Cx w/ 4.0 x 20 mm and 4.0 x 16 mm Synergy MR JOSHUA 08/07/16 Atherosclerosis of coronary artery of [place] heart without angina pectoris (Chronic) PCI-JOSHUA-Mid Cx w/ 4.0 x 20 mm and 4.0 x 16 mm Synergy MR JOSHUA 08/07/16 Chronic diastolic (congestive) heart failure (Chronic) Hyperlipidemia (Chronic) Hypertension (Chronic) Non-ST elevated myocardial infarction (Chronic) Medical History: Medical History (Last Reviewed 10/24/17 @ 13:33 by Jennifer Turner) Hyperlipemia (Chronic) E78.5 Right bundle branch block (Chronic) I45.10 Nonrheumatic mitral (valve) insufficiency (Chronic) I34.0 Atherosclerosis of coronary artery of [place] heart without angina pectoris (Chronic) I25.10 PCI-JOSHUA-Mid Cx w/ 4.0 x 20 mm and 4.0 x 16 mm Synergy MR JOSHUA 08/07/16 Chronic diastolic (congestive) heart failure (Chronic) I50.32 Hyperlipidemia (Chronic) E78.5 Hypertension (Chronic) I10 Non-ST elevated myocardial infarction (Chronic) I21.4 GERD (gastroesophageal reflux disease) K21.9 Allergies No Known Allergies Allergy (Verified 06/08/18 20:40) Home Medications: Ambulatory Orders Medication Instructions Recorded Aspirin [Aspirin, Baby] 81 mg PO QHS 08/07/16 Esomeprazole Mag Trihydrate 20 mg PO DAILY 08/07/16 [Nexium] amlodipine 5 mg tablet 5 mg PO QHS #90 tab 04/26/18 atorvastatin 80 mg tablet 80 mg PO QHS #90 tab 04/26/18 metoprolol tartrate 25 mg tablet 12.5 mg PO BID #90 tab 04/26/18 ticagrelor 90 mg tablet 90 mg PO BID #180 tab 05/03/18 Losartan Potassium [Cozaar] 50 mg PO DAILY 06/08/18 Surgical History: Surgical History (Last Updated 12/06/17 @ 17:46 by Bela Jacob) History of mitral valve repair (Chronic) Onset Date: 01/19/17 Z98.890 MVR w/ Quadrangular resection of the P2 scallop and placement of a 26 mm Guilherme EdwardsAnnuloplasty Band w/ PENELOPE Occlusion using a 40mm AtriClip 01/19/2017 A Rex Caicedo History of coronary artery stent placement (Chronic) Onset Date: 08/07/16 Z95.5 PCI-JOSHUA-Mid Cx w/ 4.0 x 20 mm and 4.0 x 16 mm Synergy MR JOSHUA 08/07/16 History of colonoscopy Z98.890 08/12/2017 - Dr Canchola History of hernia repair Z98.890, Z87.19 History of right and left heart catheterization Onset Date: 12/15/16 Z98.890 Surgical History: herniorrhaphy, - Smoking Status: Never smoker - *Family History Maternal Family History: Family History (Last Reviewed 10/24/17 @ 13:33 by Jennifer Turner) Mother CVA (cerebral vascular accident) Brain tumor (benign) Hypertension History Items: No pertinent history Paternal Family History: Family History (Last Reviewed 10/24/17 @ 13:33 by Jennifer Turner) Mother CVA (cerebral vascular accident) Brain tumor (benign) Hypertension History Items: No pertinent history Review of Systems Constitutional: Denies: Anorexia, Chills, Fever HEENT: Denies: Difficulty Swallowing Respiratory: Denies: Cough, Shortness of Breath Gastrointestinal: Reports: Abdominal Pain. Denies: Nausea, Vomiting Genitourinary: Denies: Dysuria Skin: Denies: Jaundice Neurological: Denies: Blurred vision Psychiatric: Denies: Anxiety Hematologic/ Lymphatic: Denies: Anemia VTE Information - Inpt Only VTE Present on Admission: No VTE Mechan Device Prophylaxis: SCD's Patient Problems: Active and Suspected Problems (Last Reviewed 10/24/17 @ 13:33 by Jennifer Turner) Acute cholecystitis (Acute) - Physical Exam General: Alert, Oriented x3, Cooperative, No apparent distress HEENT: Atraumatic, PERRLA Neck: No JVD Lungs: Normal air movement Cardiovascular: Regular rate, Regular Rhythm Abdomen: Soft, Non-Distended, Tender - Epigastric tenderness. No guarding or rebound. Negative Olivares sign Extremities: No edema Skin: No rashes Musculoskeletal: No Muscle Wasting Neurological: Cranial nerves II-XII grossly intact Psych/Mental Status: Normal Affect Vital Signs Temp Pulse Resp BP Pulse Ox 98.2 F 99 14 133/76 H 95 06/08/18 20:38 06/08/18 23:25 06/08/18 23:25 06/08/18 23:25 06/08/18 23:25 Oxygen Delivery Method Room Air Weight: 155 lb Body Mass Index (BMI) 25.7 Laboratory Tests Past 24 Hrs 06/08/18 06/08/18 06/08/18 20:56 20:56 20:56 WBC 8.8 RBC 5.19 Hgb 14.3 Hct 43.7 MCV 84.2 MCH 27.6 MCHC 32.7 RDW 13.9 RDW Differential 43.0 Plt Count 227 MPV 10.0 Immature Gran % (Auto) 0.200 Neut % (Auto) 72.9 H Lymph % (Auto) 14.6 L [place] % (Auto) 10.3 H Eos % (Auto) 1.8 Baso % (Auto) 0.2 Absolute Neuts (auto) 6.4 Absolute Lymphs (auto) 1.29 Total Counted Not Reportable Sodium 141 Potassium 3.5 Chloride 108 H Carbon Dioxide 26.0 Anion Gap 7 BUN 16 Creatinine 1.43 H Estim Creat Clear Calc 39.42 Est GFR (MDRD) Af Amer 62 Est GFR (MDRD) Non-Af 51 L BUN/Creatinine Ratio 11.2 Glucose 99 Calcium 8.8 Total Bilirubin 0.60 Direct Bilirubin 0.14 AST 32 ALT 32 Alkaline Phosphatase 108 Troponin I < 0.015 Total Protein 8.0 Albumin 4.1 Globulin 3.9 Lipase 120 Clinical Impression(s) from Imaging Studies Chest X-Ray 06/08/18 21:04 IMPRESSION: No acute process Electronically Signed: Jose Spicer, at 22:05 EST Tel , Service support , Abdomen/Pelvis CT 06/08/18 21:50 IMPRESSION: Findings suspicious for for acute cholecystitis with calcified gallstones likely small stones in the cystic duct, mild gallbladder distention, mild stranding around the gallbladder and possible mild gallbladder wall thickening, this should be correlated with physical exam and right upper quadrant ultrasound Colonic diverticulosis no diverticulitis small hiatal hernia, wall thickening of the lower esophagus which may be secondary to reflux esophagitis however pathologic wall thickening cannot be excluded further evaluation with endoscopy or barium swallow recommended Previous cardiothoracic surgery sternal wires, atrial clipping, epidural stimulator wire 3 an 2 mm hypodensities within the liver too small to characterize most likely hepatic cysts Periumbilical fatty hernia Small right pleural effusion and right basilar subsegmental atelectasis Multilevel degenerative changes of the lumbar spine Electronically Signed: Jose Spicer at 23:45 EST Tel , Service support , Chest CTA 06/08/18 21:50 IMPRESSION: Normal CTA chest examination, without a demonstrated pulmonary embolism or arterial dissection. Scattered small 5 mm and smaller pulmonary nodules likely benign six-month follow-up recommended for stability Scattered mild pulmonary scarring and few scattered bulla small right pleural effusion, right basilar subsegmental atelectasis Cholelithiasis Electronically Signed: Jose Spicer at 23:30 EST Tel , Service support , Gallbladder Ultrasound 06/08/18 23:49 IMPRESSION: Ultrasound findings (distended gallbladder with gallstones and wall thickening and pericholecystic fluid) concerning for acute calculus cholecystitis; although Olivares sign was negative as per the technologist. at 0100 Reported and signed by: Fred Mcginnis MD Electronically Signed: Fred Mcginnis, at 0:59 EST Tel , Service support , Assessment/Plan All Active Problems (Last Reviewed 10/24/17 @ 13:33 by Jennifer Turner) Acute cholecystitis (Acute) Screen for colon cancer (Resolved) 72-year-old male with acute cholecystitis 1. The patient had extensive workup in the emergency room. Cardiac enzymes were negative as was a CTA of the chest abdomen and pelvis. The CT revealed mild stranding around the gallbladder and an ultrasound was performed. Gallbladder wall was 3-4 mm with some pericholecystic fluid and gallstones. The patient has a normal white count and normal LFTs. The patient has epigastric tenderness with no Olivares sign. 2. I will admit the patient for observation. I will recheck labs later today and recheck physical exam. The patient is on Brilinta which increases bleeding risk during surgery. If the patient's symptoms improve off pain medication and on antibiotics I am may keep him on antibiotics for a few days off Brilinta and then perform his cholecystectomy. If his white count elevates or his pain worsens I will have to taken to surgery urgently on Brilinta. 3. N.p.o., IV fluids, antibiotics, SCDs, hold Brilinta, PPI. Stephen Canchola MD Pager: [facility] [address] [place] [address], [address] [place] [address] Office:
[2018-06-09] MEDS: Lactated Ringers 1,000 ML 120 ML IV ×4 (03:49→23:27)
[2018-06-09 06:01] LABS: Absolute Lymphocyte Count 1.29 X10^3/ul (0.83-4.51); Absolute Neutrophil Count 9.3 X10^3/uL (2.0-7.7); Basophil# 0.02 X10^3/uL; Basophil% 0.2 % (0-1); Eosinophil# 0.09 X10^3/uL; Eosinophils% 0.7 % (0-5); Hematocrit 43.3 % (40-54); Hemoglobin 14.2 g/dl (13.0-16.5); Lymphocyte # 1.29 X10^3/ul (4.0); Lymphocyte % 10.7 % (19-41); Mean Corp Hgb Conc 32.8 g/gl (32-36); Mean Corpuscular Hgb 27.6 pg (27.0-32.0); Mean Corpuscular Volume 84.1 fL (80-94); Mean Platelet Vol. 10.2 fl (6.2-12.0); Monocyte# 1.27 X10^3/uL; Monocyte% 10.6 % (0-10); Neutrophil # 9.32 X10^3/uL (2.7-7.7); Neutrophil % 77.6 % (47-70); Platelet Count 239 K/mm3 (150-450); RBC Distribution Width SD 42.5 fl (35.1-43.9); Red Blood Count 5.15 M/mm3 (4.6-6.2)
[2018-06-09 06:09] LABS: POSITIVE COUNT NO; POSITIVE DIFFERENTIAL NO; POSITIVE MORPHOLOGY NO
[2018-06-09] MEDS: Piperacil/Tazobactam 3.375 GM/50 ML ML IV (06:14)
[2018-06-09 06:29] LABS: ALB/GLOB Ratio 0.9 RATIO (0.9-2.4); AST(SGOT) 39 U/L (15-37); Alanine Aminotransfer ALT/SGPT 28 U/L (16-61); Albumin, Serum 3.6 g/dL (3.2-5.0); Alkaline Phosphatase 95 U/L (45-117); Anion Gap 12 (5-15); BUN 11 mg/dL (7-18); BUN/Creat Ratio 9.3 RATIO (10-20); Calcium,Total 8.7 mg/dL (8.5-10.1); Chloride 110 mmol/L (98-107); Creatinine, Serum 1.18 mg/dL (0.70-1.30); EST Glomerular Filtration Rate 64 mL/min (>60); Est Glom Filt Rate - Afr Amer 77 mL/min (>60); Estimated Creatinine Clearance 47.78 ml/min; Globulin 3.9 g/dL (2.2-4.2); Glucose 98 mg/dL (74-106); Potassium 3.8 mmol/L (3.5-5.1); Protein, Total 7.5 g/dL (6.4-8.2); Sodium Level 142 mmol/L (136-145)
--- NOTE | 2018-06-09 09:51 | PCM.PN.SRG ---
Patient Problems: Active and Suspected Problems (Last Reviewed 10/24/17 @ 13:33 by Jennifer Turner) Acute cholecystitis (Acute) Subjective: Patient still complaining of epigastric pain. - Physical Exam General: Alert, Oriented x3 Lungs: Normal air movement Cardiovascular: Regular rate, Regular Rhythm Abdomen: Soft, Non-Distended, Tender - Tender in the epigastric region. No guarding or rebound. Vital Signs Temp Pulse Resp BP Pulse Ox 98.8 F 94 16 129/78 H 97 06/09/18 03:14 06/09/18 03:14 06/09/18 03:14 06/09/18 03:14 06/09/18 03:14 Oxygen Delivery Method Room Air Weight: 160 lb 0.889 oz Body Mass Index (BMI) 26.6 Intake and Output for Last 24 Hours 06/07/18 06/08/18 06/09/18 23:59 23:59 23:59 Intake Total 267 / 267 Output Total 450 / 450 Balance -183 / -183 Laboratory Tests Past 24 Hrs 06/08/18 06/08/18 06/08/18 20:56 20:56 20:56 WBC 8.8 RBC 5.19 Hgb 14.3 Hct 43.7 MCV 84.2 MCH 27.6 MCHC 32.7 RDW 13.9 RDW Differential 43.0 Plt Count 227 MPV 10.0 Immature Gran % (Auto) 0.200 Neut % (Auto) 72.9 H Lymph % (Auto) 14.6 L [place] % (Auto) 10.3 H Eos % (Auto) 1.8 Baso % (Auto) 0.2 Absolute Neuts (auto) 6.4 Absolute Lymphs (auto) 1.29 Total Counted Not Reportable Sodium 141 Potassium 3.5 Chloride 108 H Carbon Dioxide 26.0 Anion Gap 7 BUN 16 Creatinine 1.43 H Estim Creat Clear Calc 39.42 Est GFR (MDRD) Af Amer 62 Est GFR (MDRD) Non-Af 51 L BUN/Creatinine Ratio 11.2 Glucose 99 Calcium 8.8 Total Bilirubin 0.60 Direct Bilirubin 0.14 AST 32 ALT 32 Alkaline Phosphatase 108 Troponin I < 0.015 Total Protein 8.0 Albumin 4.1 Globulin 3.9 Albumin/Globulin Ratio Lipase 120 06/09/18 06/09/18 05:28 05:28 WBC 12.0 H RBC 5.15 Hgb 14.2 Hct 43.3 MCV 84.1 MCH 27.6 MCHC 32.8 RDW 14.0 RDW Differential 42.5 Plt Count 239 MPV 10.2 Immature Gran % (Auto) 0.200 Neut % (Auto) 77.6 H Lymph % (Auto) 10.7 L [place] % (Auto) 10.6 H Eos % (Auto) 0.7 Baso % (Auto) 0.2 Absolute Neuts (auto) 9.3 H Absolute Lymphs (auto) 1.29 Total Counted Not Reportable Sodium 142 Potassium 3.8 Chloride 110 H Carbon Dioxide 20.0 L Anion Gap 12 BUN 11 Creatinine 1.18 Estim Creat Clear Calc 47.78 Est GFR (MDRD) Af Amer 77 Est GFR (MDRD) Non-Af 64 BUN/Creatinine Ratio 9.3 L Glucose 98 Calcium 8.7 Total Bilirubin 0.90 Direct Bilirubin AST 39 H ALT 28 Alkaline Phosphatase 95 Troponin I Total Protein 7.5 Albumin 3.6 Globulin 3.9 Albumin/Globulin Ratio 0.9 Lipase Medical Necessity - Tobacco Use Smoking Status: Never smoker Assessment/Plan All Active Problems (Last Reviewed 10/24/17 @ 13:33 by Jennifer Turner) Acute cholecystitis (Acute) Screen for colon cancer (Resolved) 72-year-old male with acute cholecystitis 1. The patient's white count has gone up despite antibiotics the patient still having epigastric pain. I doubt he would tolerate a diet. I believe he should go for surgery today as I believe that there is more risk of waiting and doing surgery next week then getting to the gallbladder early. I believe doing his gallbladder surgery as soon as possible will necessitate the less amount of inflammation and bleeding. The patient is at increased risk due to his Brilinta. 2. I discussed the procedure in detail with the patient. I discussed the risks, benefits, and alternatives of the procedure. I discussed the risks including but not limited to bleeding, infection, injury to surrounding organs such as the liver, bile duct, bowels. I did discuss the possibility of having to convert to an open procedure as well as the possibility that if any injuries occurred this may necessitate further surgery at a tertiary care center. Stephen Canchola MD Pager: [facility] [address] [place] [address], [address] [place] [address] Office:
[2018-06-09] MEDS: Metoprolol Tartrate 25 MG Tablet 12.5 MG PO ×2 (10:11→22:05)
[2018-06-09] MEDS: Pantoprazole Sodium 40 MG Tablet PO (10:14)
--- NOTE | 2018-06-09 11:25 | CASEMGMT ---
FOX [facility]ORVATH Face to Face with patient for initial transition planning/care coordination assessment. RN CM introduced self and role at [facility]. Patient lying in bed, alert and oriented, at bedside. Patient willing to participate in assessment and is able to answer all questions appropriately. Care providers, pharmacy, and demographics verified. Patient wishes to discharge home, denies need for home health at this time. Patient states he has no further needs or concerns at this time. CM to follow for discharge planning needs that may arise. PCP: Konrad Specialists: Jonnie antisqueak chalker Preferred Pharmacy: [facility] Insurance: [employer] Prescription Benefit: Yes Living Will/HPOA: None LNOK: Living Arrangements: Patient lives with in 1 story home with 1 step to enter the home. Patient is independent at home. Transportation: self/ DME/HHC: Patient states that he has shower chair, raised toilet, cane, crutches, walker, w/c. Patient denies home oxygen, cpap, bipap, or nebulizer at home. Denies previous HHC/SNF. Disposition Plan: Patient to discharge home with family support and follow-up plans in place. Chrystal FONSECA, RN, CM
--- NOTE | 2018-06-09 13:20 | NURSING ---
report called to pamela rich rn in [facility]
--- NOTE | 2018-06-09 14:03 | NURSING ---
OFF UNIT VIA BED FOR PROCEDURE. AND DAUGHTER PRESENT
--- NOTE | 2018-06-09 15:00 | GALL_PTH ---
PATIENT: ALE RIVAS LOC: MS3 U#:[id number] AGE/SX: 72/M ROOM: [facility] RE06/09/[address]: Dr. Stephen Canchola MD : 1945 BED: 1 DIS: 06/10/2018 SPEC #: [id number] RECD: 06/09/18 16:17 STATUS: AP REPilar #: [id number] CHELI: 06/09/18 15:[address]: Stephen Canchola DEPT: SURGICAL PATHOLOGY RECD BY: Jarred Wylie ENTERED: 06/12/18 13:55 SP TYPE: TON LANDEROS DR: Dr. Javier Silvestre MD Tissues: Gallbladder, NOS Procedures: Surgery Specimen Level III HEADER OPERATION: Laparoscopic cholecystectomy with IOC PRE-OP DIAGNOSIS: Acute cholecystitis TISSUE SUBMITTED: Gallbladder MICROSCOPIC DIAGNOSIS Gallbladder, cholecystectomy: Acute and chronic cholecystitis and cholelithiasis. AM:bushra 06/13/18 MICROSCOPIC DESCRIPTION Slides are reviewed. GROSS DESCRIPTION Received is one container labeled with the patient's name and designated gallbladder. The specimen consists of a gallbladder measuring 6.5 cm in length and up to 3.5 cm in diameter. The external surface is pink-go, smooth and glistening for the most part. Focally it is granular, hemorrhagic and contains cautery artifact. The gallbladder contains a small amount of go mucoid bile. Present in the container are multiple black irregular stones measuring in aggregate 2 x 1.5 x 0.6 cm and 0.5 to 1 cm in greatest dimension. The mucosa is bile-stained and without any mass lesions. The gallbladder wall measures up to 0.3 cm in thickness. Dynamite Reclaimer sections from the gallbladder and the cystic duct are submitted in one cassette. / SJ:bushra 06/12/18 TC:2 CPT: 53468
--- NOTE | 2018-06-09 15:00 | RAD_ITS ---
CLINICAL HISTORY: Male, 72 years old. Acute cholecystitis. PROCEDURE: CHOLANGIOGRAM - interoperative FLUOROSCOPY TIME (if supplied): (0:46) minutes/seconds TECHNIQUE: 5 intraprocedural images were presented for interpretation. COMPARISON: Abdominal ultrasound, June 09, 2018. FINDINGS: The images demonstrate surgical instruments in the region of the gallbladder. Contrast is seen within the gallbladder cystic duct and upper extra and intrahepatic ducts. There is no filling defect stricture or stenosis. Subsequent images demonstrate complete opacification of the CBD without stricture or dilatation or filling defect. There is free spillage of contrast into the duodenum. Please refer to procedural report for further details. RAD/Cholangiogram/ O R,Initial IMPRESSION: Interoperative cholangiogram, as above. Electronically Signed: Dion Wilson DO at 16:47 EST Tel [phone], Service support ,
[2018-06-09] MEDS: Bupiv/Epi 0.25% 30 ML Vial (16:07)
--- NOTE | 2018-06-09 16:20 | OP.PCM_ITS ---
Problem List (1) Acute cholecystitis Status: Acute Report of Operation Date of Procedure: 06/09/18 Pre-Operative Diagnosis: Acute cholecystitis Post-Operative Diagnosis: Same Surgery/Procedure Performed:: Laparoscopic cholecystectomy with cholangiogram Specimen's removed: Gallbladder and contents Estimated Blood Loss (mL): 100 Description of Procedure: After obtaining informed consent patient was brought back to the operating room. General anesthesia was induced. The abdomen was prepped and draped in usual sterile fashion. A small midline incision was made superior to the umbilicus and deepened to the level of fascia. The fascia was elevated and incised. Next the peritoneum was elevated and incised in the same fashion. Finger sweep was performed and the Hua trocar was placed into the abdomen. There were adhesions inferiorly. The balloon was inflated. The abdomen was inflated to 15 mmHg. Next a camera was introduced into the abdomen and the abdomen was inspected. Next under direct visualization three 5-mm ports were placed one subxiphoid and 2 subcostal. The umbilical port site was inspected and it appeared the patient did have an umbilical hernia repair with mesh at some point. The liver was very far superior to the right upper quadrant. The gallbladder was very distended and tense. It was aspirated. Next the gallbladder was elevated and retracted toward the right shoulder. The peritoneum was stripped from the gallbladder. The gallbladder appeared severely inflamed. The infundibulum was located and retracted laterally. Next the triangle of Calot was dissected and the cystic duct and cystic artery were identified. Cholangiograms were performed. The Forbes clamp was used to clamp across the infundibulum and the catheter needle was inserted into the gallbladder. Under fluoroscopy contrast was instilled into the gallbladder and the common duct, cystic duct as well as proximal hepatic ducts were identified. There was good filling of the duodenum. There were no filling defects noted in the common bile duct. The clamp was removed as well as the needle and the infundibulum was grasped once more. Three hemolock clips were placed across the cystic duct. The cystic duct was then divided leaving 2 clips on the stump. The cystic artery was clipped and divided in the same fashion. The hook cautery was then used to take the gallbladder off of the gallbladder bed. The gallbladder bed was oozing significantly and the argon beam was used to obtain hemostasis. Next a piece of Surgicel was placed into the gallbladder fossa and this was packed. The Surgicel was allowed to stay in place for 5 minutes and then reinspected and appeared to be dry and not saturated. Next the camera s witched to a 5 mm camera and introduced in the subxiphoid port. An Endopouch bag was placed through the umbilical port and the gallbladder was placed into it. The gallbladder was then removed through the umbilical incision. The camera was then reinserted through the umbilical port. The gallbladder fossa was inspected once more and noted to be hemostatic with no leaking bile. The abdomen was suctioned dry. The 5 mm ports were removed under direct visualization. The umbilical port was then removed and the air was removed from the abdomen. Next using an 0 Vicryl suture the umbilical fascia was closed in a [id number] fashion. The umbilical port site was irrigated local anesthetic was administered to all the incisions. All the incisions were closed with interrupted subcuticular 4-0 Monocryl sutures followed by Steri-Strips and dressings. The patient was awoken and taken to PACU in stable condition. - Admit VTE Documentation VTE Mechan Device Prophylaxis: SCD's
--- NOTE | 2018-06-09 16:29 | DCINST_ITS ---
Discharge Diet: Light diet - advance as tolerated Discharge Activity: Return to Normal Activity, May Not Drive - for 2-3 days or while taking narcotic pain medicataions., - - Do not drive, work heavy equipment or sign legal documents for 24 hours. May shower in (days): 1 - with the bandage in place. Lifting Restrictions: 20 lbs for 2 weeks Additional Activity Instructions:: Pain medication may cause nausea. You should typically eat light foods as you take your pain medications. Pain medication may also cause constipation. If this is a problem for you, please discuss with your doctor. Call your doctor if your incision/area has: Continuous Slow Oozing, Sudden Increased Bleeding, Increased Pain/ Swelling, Increased Redness, Foul Smelling Discharge, Fever of 101 or Higher Call your doctor if you observe: Fever of 101 or Higher Suture Line Care: Avoid Pulling/Pushing, Avoid Pinching/Bending Additional Dressing/Incision Instructions:: Leave operative bandaids on for 2 days. When you remove dressing, leave Steri-Strips on until your follow-up appointment, or until the Steri-Strips fall off on their own. Additional Instructions: Resume blood thinners Tuesday Allergies/Adverse Reactions: Allergies No Known Allergies Allergy (Verified 06/08/18 20:40) Medications to take at Discharge Aspirin [Aspirin, Baby] 81 mg PO QHS 08/07/16 Esomeprazole Mag Trihydrate [Nexium] 20 mg PO DAILY 08/07/16 amlodipine 5 mg tablet 5 mg PO QHS #90 tab 04/26/18 atorvastatin 80 mg tablet 80 mg PO QHS #90 tab 04/26/18 metoprolol tartrate 25 mg tablet 12.5 mg PO BID #90 tab 04/26/18 ticagrelor 90 mg tablet 90 mg PO BID #180 tab 05/03/18 Losartan Potassium [Cozaar] 50 mg PO DAILY 06/08/18 Primary Care Physician: Javier Silvestre MD [Primary Care Provider] - Test Results: Test results from this visit will be discussed in further detail at your follow- up appointment, if applicable. Please Follow Up With: Stephen Canchola MD When: call to make 2 week follow up appt [phone]
[2018-06-09] MEDS: Atorvastatin Calcium 80 MG Tablet PO (22:05)
[2018-06-09] MEDS: amLODIPine 5 MG Tablet PO (22:05)
[2018-06-09] MEDS: Acetaminophen 325 MG Tablet 650 MG PO (22:17)
--- NOTE | 2018-06-10 02:56 | NURSING ---
Pt refuses to void in hat in the toilet for accurate measurement of output. Pt denies bladder pressure after voiding. Will continue to monitor.
[2018-06-10 03:35] VITALS: BP 103/62; PULSE 88; RESP 16; TEMP 37.2; O2SAT 94
--- NOTE | 2018-06-10 05:10 | PCM.PN.SRG ---
Patient Problems: Active and Suspected Problems (Last Reviewed 10/24/17 @ 13:33 by Jennifer Turner) Acute cholecystitis (Acute) Subjective: Patient has not been able to completely void. He dribbled out about 100 cc with a postvoid residual showed almost 900 cc in his bladder. He states that he really is not that uncomfortable. He is not complaining of any abdominal pain. He is complaining of throat discomfort. Objective: His abdomen is soft his dressings are dry he has hypoactive bowel sounds - Physical Exam Vital Signs Temp Pulse Resp BP Pulse Ox 99.0 F 88 16 103/62 94 06/10/18 03:35 06/10/18 03:35 06/10/18 03:35 06/10/18 03:35 06/10/18 03:35 Oxygen Flow Rate (L/min) 2 Oxygen Delivery Method Room Air Weight: 160 lb 0.889 oz Body Mass Index (BMI) 26.6 Intake and Output for Last 24 Hours 06/08/18 06/09/18 06/10/18 23:59 23:59 23:59 Intake Total 2467 / 2467 1510 / 1510 Output Total 450 / 450 100 / 100 Balance 2016 1410 / 1410 Laboratory Tests Past 24 Hrs 06/09/18 06/09/18 05:28 05:28 WBC 12.0 H RBC 5.15 Hgb 14.2 Hct 43.3 MCV 84.1 MCH 27.6 MCHC 32.8 RDW 14.0 RDW Differential 42.5 Plt Count 239 MPV 10.2 Immature Gran % (Auto) 0.200 Neut % (Auto) 77.6 H Lymph % (Auto) 10.7 L [place] % (Auto) 10.6 H Eos % (Auto) 0.7 Baso % (Auto) 0.2 Absolute Neuts (auto) 9.3 H Absolute Lymphs (auto) 1.29 Total Counted Not Reportable Sodium 142 Potassium 3.8 Chloride 110 H Carbon Dioxide 20.0 L Anion Gap 12 BUN 11 Creatinine 1.18 Estim Creat Clear Calc 47.78 Est GFR (MDRD) Af Amer 77 Est GFR (MDRD) Non-Af 64 BUN/Creatinine Ratio 9.3 L Glucose 98 Calcium 8.7 Total Bilirubin 0.90 AST 39 H ALT 28 Alkaline Phosphatase 95 Total Protein 7.5 Albumin 3.6 Globulin 3.9 Albumin/Globulin Ratio 0.9 Medical Necessity - Tobacco Use Smoking Status: Never smoker Assessment/Plan All Active Problems (Last Reviewed 10/24/17 @ 13:33 by Jennifer Turner) Acute cholecystitis (Acute) Screen for colon cancer (Resolved) We are going to straight cathing x1. We will going to see how he does over the next 6 hours. We will have him try to urinate well and completely around noon. And then we will check another postvoid residual. If he empties his bladder completely we should be able to discharge him without any difficulty. If he does not and I am going to have to try to do another trial to see if he can empty his bladder completely versus putting a Fu catheter in and sending him home
[2018-06-10 07:32] LABS: Absolute Lymphocyte Count 0.84 X10^3/ul (0.83-4.51); Absolute Neutrophil Count 6.2 X10^3/uL (2.0-7.7); Basophil# 0.01 X10^3/uL; Basophil% 0.1 % (0-1); Eosinophil# 0.06 X10^3/uL; Eosinophils% 0.8 % (0-5); Hematocrit 36.8 % (40-54); Hemoglobin 12.1 g/dl (13.0-16.5); Lymphocyte # 0.84 X10^3/ul (4.0); Lymphocyte % 10.5 % (19-41); Mean Corp Hgb Conc 32.9 g/gl (32-36); Mean Corpuscular Hgb 28.2 pg (27.0-32.0); Mean Corpuscular Volume 85.8 fL (80-94); Mean Platelet Vol. 10.7 fl (6.2-12.0); Monocyte% 11.3 % (0-10); Neutrophil # 6.15 X10^3/uL (2.7-7.7); Neutrophil % 77.2 % (47-70); Platelet Count 175 K/mm3 (150-450); RBC Distribution Width CV 14.1 % (11.6-14.6); Red Blood Count 4.29 M/mm3 (4.6-6.2)
[2018-06-10 07:35] LABS: POSITIVE COUNT NO; POSITIVE DIFFERENTIAL NO; POSITIVE MORPHOLOGY NO
[2018-06-10 07:53] LABS: ALB/GLOB Ratio 0.9 RATIO (0.9-2.4); AST(SGOT) 61 U/L (15-37); Alanine Aminotransfer ALT/SGPT 58 U/L (16-61); Albumin, Serum 2.9 g/dL (3.2-5.0); Alkaline Phosphatase 77 U/L (45-117); Anion Gap 9 (5-15); BUN 10 mg/dL (7-18); BUN/Creat Ratio 8.1 RATIO (10-20); Calcium,Total 8.1 mg/dL (8.5-10.1); Chloride 108 mmol/L (98-107); Creatinine, Serum 1.23 mg/dL (0.70-1.30); EST Glomerular Filtration Rate 61 mL/min (>60); Est Glom Filt Rate - Afr Amer 74 mL/min (>60); Estimated Creatinine Clearance 45.83 ml/min; Globulin 3.2 g/dL (2.2-4.2); Glucose 124 mg/dL (74-106); Potassium 3.5 mmol/L (3.5-5.1); Protein, Total 6.1 g/dL (6.4-8.2); Sodium Level 142 mmol/L (136-145)
[2018-06-10] MEDS: Lactated Ringers 1,000 ML 120 ML IV (07:56)
[2018-06-10 08:38] VITALS: BP 132/79; PULSE 107; RESP 16; TEMP 37.4; O2SAT 94
[2018-06-10 08:55] VITALS: PULSE 107
[2018-06-10] MEDS: Metoprolol Tartrate 25 MG Tablet 12.5 MG PO (08:55)
[2018-06-10] MEDS: Pantoprazole Sodium 40 MG Tablet PO (08:55)
[2018-06-10] MEDS: Losartan Potassium 50 MG Tablet PO (08:55)
[2018-06-10 13:02] VITALS: BP 134/75; PULSE 104; RESP 16; TEMP 37.5; O2SAT 96
--- NOTE | 2018-06-12 16:12 | CASEMGMT ---
FOX HORVATH Discharge Follow-up Phone Call: THADLesley: Bhavna Strata: 3 Call Date: 06/12/18 Discharge Date: 06/10/18 Time of Call: 1610 Duration: 3 min Admitting Diagnosis: Acute Cholecystitis FOX HORVATH completed follow-up phone call after recent hospitalization. Patient states that he is a little sore. Patient is aware of follow-up appt on 06/[address] Canchola. Encouraged patient to schedule follow-up with PCP. Patient stated he had no questions regarding discharge instructions. Patient denied further questions at this time.
== END 2018-06-10 13:16 | disposition home or self-care (01) | DRG 418 ==
LOC: ED 06-09 02:20 → MS3 06-09 02:44
PROVIDERS: Emergency Medicine; Admitting Provider Surgery; Emergency Provider Emergency Medicine; Family Provider Family Medicine; PCP Family Medicine; Visit Provider Surgery
PROC: 0FT44ZZ Resection of Gallbladder, Percutaneous Endoscopic Approach (ICD-10-PCS; CPT 47610; principal; 2018-06-09 14:40)
DX: K80.00 Calculus of gallbladder with acute cholecystitis without obstruction (principal); I50.32 Chronic diastolic (congestive) heart failure; E78.5 Hyperlipidemia, unspecified; I25.10 Atherosclerotic heart disease of native coronary artery without angina pectoris; K21.9 Gastro-esophageal reflux disease without esophagitis; Z95.5 Presence of coronary angioplasty implant and graft; I11.0 Hypertensive heart disease with heart failure; I25.2 Old myocardial infarction; Z79.82 Long term (current) use of aspirin; Z79.899 Other long term (current) drug therapy
CPT/HCPCS: 36415; 71045; 71275; 74177; 74300; 76000; 76705; 80048; 80053; 80076; 83690; 84484; 85025; 88304; 93005; 97802; 99285; J7030; J7040; J7120; Q9967; A4216; J2405

== ENCOUNTER → 2018-12-14 12:26 | Outpatient (CLI) | payer MEDICARE, SELFPAY ==
[2016-08-09 08:56] VITALS: BMI 28.8
[2018-11-23 14:25] VITALS: BMI 26.2
--- NOTE | 2018-12-14 12:28 | ECHOCS_ITS ---
Reason For Study: VALVE REPLACEMENT EVAL Procedure This was a 2D Doppler, Color Flow transthoracic echocardiogram. The study was technically difficult. Due to body habitus. Contrast injection was performed. Exam performed in department. Left Ventricle Moderately dilated left ventricle. The estimated ejection fraction is 45-50 %. Septal motion consistent with IVCD. Posterior-Basal: Mildly hypokinetic. Infero-Basal: Mildly hypokinetic. Right Ventricle Mildly dilated right ventricle. Normal systolic function. Atria The left atrium is moderately enlarged. Normal right atrium. Mitral Valve Peak transmitral valve gradient 12 mmHg. Mean transmitral valve gradient 5 mmHg. Trivial eccentric mitral valve insufficiency. Status post mitral valve repair. Tricuspid Valve Normal tricuspid valve. Trivial tricuspid valve insufficiency. Right ventricular systolic pressure estimated to be 37 mmHg. Aortic Valve Normal aortic valve. Trisinus/trileaflet aortic valve. Pulmonic Valve Normal pulmonic valve. Great Vessels Normal aortic root. Normal arch. Pericardium/Pleural No pericardial effusion. Medication 22 gauge I.V. with prn adaptor inserted into right arm. Diluted definity 3.0ml given slow IV push to enhance endocardial definition. MMode/2D Measurements & Calculations LVIDd: 5.2 cm IVSd: 0.86 cm Ao root diam: 3.3 cm LVIDs: 3.7 cm LVPWd: 0.91 cm RVDd: 3.7 cm FS: 28.1 % LAV(MOD-bp): 84.0 ml LA A4 area: 25.3 cm2 LA dimension(2D): 5.3 cm LAV(MOD-bp) Indexed: 47.0 ml/m2 LAV(MOD-sp2): 78.2 ml LAV(MOD-sp4): 85.6 ml RA A4 area: 13.3 cm2 Time Measurements MV dec time: 0.39 sec Doppler Measurements & Calculations MV E max mickey: 134.7 cm/sec Lat Peak E' Mickey: 9.6 cm/sec Med Peak E' Mickey: 3.7 cm/sec MV A max mickey: 127.5 cm/sec E/E' lat: 14.1 E/E' med: 36.6 MV E/A: 1.1 MV V2 max: 174.5 cm/sec Ao V2 max: 129.7 cm/sec LV V1 max: 94.5 cm/sec MV max P.2 mmHg Ao max P.7 mmHg LV V1 max P.6 mmHg MV V2 mean: 101.9 cm/sec MV mean P.8 mmHg MV V2 VTI: 59.8 cm PA V2 max: 82.5 cm/sec TR max mickey: 280.8 cm/sec MV P1/2t-pr_phl: 113.5 msec TR max P.5 mmHg Interpretation Summary Moderately dilated left ventricle. The estimated ejection fraction is 45-50 %. The left atrium is moderately enlarged. Peak transmitral valve gradient 12 mmHg. Trivial eccentric mitral valve insufficiency. Trivial tricuspid valve insufficiency. Right ventricular systolic pressure estimated to be 37 mmHg. Compared to echo report dated 06/13/2017, no appreciable changes noted. The study was technically difficult. Contrast injection was performed. Ordering Physician: Yemi Cristina Referring Physician: Javier Silvestre Performed By: Adwoa Allen, FLORINA, RVT
== END ==
PROVIDERS: Family Provider Family Medicine; PCP Family Medicine; Referring Provider Internal Medicine Cardiovascular Disease; Visit Provider Internal Medicine Cardiovascular Disease
DX: Z98.890 Other specified postprocedural states (principal); Z95.2 Presence of prosthetic heart valve
CPT/HCPCS: 93306; Q9957; A4216; C8929

== ENCOUNTER → 2019-12-27 11:48 | Outpatient (CLI) | payer MEDICARE, SELFPAY ==
[2016-08-09 08:56] VITALS: BMI 28.8
[2019-05-28 14:00] VITALS: BMI 27.1
--- NOTE | 2019-12-27 11:51 | ECHOD_ITS ---
Reason For Study: VALVE REPLACEMENT EVAL Procedure This was a 2D Doppler, Color Flow transthoracic echocardiogram. The study was technically difficult. Exam performed in department. Left Ventricle Normal LV size. Mild segmental systolic dysfunction (see wall motion). The estimated ejection fraction is 40 %. Diastolic function is indeterminate. Posterior-Basal: Hypokinetic. Infero-Basal: Hypokinetic. Mid-Lateral : Hypokinetic. Mid-Posterior: Hypokinetic. Mid-Inferior: Hypokinetic. Inferior [place] : Hypokinetic. Lateral [place] : Hypokinetic. Right Ventricle Normal RV size. Normal systolic function. Atria The left atrium is mildly enlarged. Normal right atrium. No doppler evidence for ASD. Mitral Valve Mild mitral valve stenosis. An annuloplasty ring is noted in the mitral position. Trivial transvalvular insufficiency of the mitral valve. Tricuspid Valve Normal tricuspid valve. Trivial tricuspid valve insufficiency. Unable to estimate RV systolic pressure/pulmonary artery pressure due to technically difficult study. Aortic Valve Trisinus/trileaflet aortic valve. Normal aortic valve. Pulmonic Valve The pulmonic valve is not well visualized. Trivial pulmonic valve insufficiency. Great Vessels Normal sized aortic root. Pericardium/Pleural No pericardial effusion. MMode/2D Measurements & Calculations LVIDd: 4.1 cm IVSd: 0.99 cm LVOT diam: 2.0 cm LVIDs: 3.1 cm LVPWd: 1.1 cm LVOT area: 3.1 cm2 RVDd: 2.8 cm FS: 24.1 % Ao root diam: 3.2 cm LAV(MOD-bp): 48.5 ml LVAd ap4: 23.8 cm2 LAV(MOD-bp) Indexed: 27.0 ml/m2 EDV(MOD-sp4): 66.6 ml LAV(MOD-sp2): 53.7 ml EDV(sp4-el): 67.0 ml LAV(MOD-sp4): 45.3 ml LVAs ap4: 15.0 cm2 ESV(MOD-sp4): 31.6 ml ESV(sp4-el): 31.5 ml EF(MOD-sp4): 52.5 % EF(sp4-el): 52.9 % SV(MOD-sp4): 35.0 ml SV(sp4-el): 35.5 ml LA A4 area: 17.3 cm2 LA dimension(2D): 4.3 cm RA A4 area: 13.5 cm2 Time Measurements MV dec time: 0.53 sec Doppler Measurements & Calculations MV E max mickey: 129.2 cm/sec Lat Peak E' Mickey: 7.9 cm/sec Med Peak E' Mickey: 4.5 cm/sec MV A max mickey: 114.1 cm/sec E/E' lat: 16.3 E/E' med: 28.8 MV E/A: 1.1 MV V2 max: 163.7 cm/sec MV P1/2t max mickey: 147.3 cm/sec Ao V2 max: 123.7 cm/sec MV max P.7 mmHg MV P1/2t: 156.0 msec Ao max P.1 mmHg MV V2 mean: 105.5 cm/sec MV mean P.9 mmHg MV dec slope: 276.5 cm/sec2 LY(V,D): 2.0 cm2 MV V2 VTI: 54.6 cm MVA(P1/2t): 1.4 cm2 MVA(VTI): 1.0 cm2 LV V1 max: 78.1 cm/sec SV(LVOT): 56.2 ml PA V2 max: 84.5 cm/sec LV V1 max P.4 mmHg LV V1 mean P.3 mmHg LV V1 mean: 54.3 cm/sec LV V1 VTI: 18.0 cm MV P1/2t-pr_phl: 153.9 msec Interpretation Summary The study was technically difficult. Mild segmental systolic dysfunction (see wall motion). The estimated ejection fraction is 40 %. The left atrium is mildly enlarged. An annuloplasty ring is noted in the mitral position. Mild mitral valve stenosis. Trivial transvalvular insufficiency of the mitral valve. Trivial tricuspid valve insufficiency. Trivial pulmonic valve insufficiency. Unable to estimate RV systolic pressure/pulmonary artery pressure due to technically difficult study. Diastolic function is indeterminate. Ordering Physician: Yemi Cristina Referring Physician: CATINA HAYWOOD Performed By: Li Vega RDCS
== END ==
PROVIDERS: PCP Family Medicine; Referring Provider Internal Medicine Cardiovascular Disease; Visit Provider Internal Medicine Cardiovascular Disease
DX: I25.10 Atherosclerotic heart disease of native coronary artery without angina pectoris (principal)
CPT/HCPCS: 93306

== ENCOUNTER 2021-07-24 06:38 | Outpatient (CLI) | payer MEDICARE, SELFPAY ==
[2016-08-09 08:56] VITALS: BMI 28.8
--- NOTE | 2021-07-24 09:46 | STRESSREP_ITS ---
Stress Test Report Date: 07-24-2021 Procedure: Pharmacologic stress nuclear imaging study Indications: CAD, status post PCI, status post mitral valve repair, status post left atrial appendage occlusion, chronic diastolic mediated CHF, hyperlipidemia, hypertension Consent: Per the patient Procedure: The patient underwent pharmacologic (Regadenoson 0.4mg ) evaluation with a peak heart rate of 122 beats per minute (85%predicted maximal heart rate) and a peak blood pressure of 152/78 mmHg. The baseline ECG demonstrated sinus rhythm; right bundle branch block. The peak pharmacologic ECG demonstrated no obvious ECG changes. There were no cardiac dysrhythmias pretest, during pharmacologic infusion, or recovery. There was no complaint of chest discomfort during pharmacologic infusion or recovery. The examination was discontinued secondary to completion of protocol. Impression: 1. Pharmacologic (Regadenoson) evaluation 2. Peak pharmacologic ECG with continued sinus rhythm with right bundle branch block with no obvious ECG changes. 3. There were no cardiac dysrhythmias pretest, during pharmacologic infusion, or recovery. 4. Nuclear images pending Myocardial perfusion imaging study: Technique: The patient was injected with 11.2 millicuries of technetium 99m Cardiolite and subsequently rest SPECT Cardiolite nuclear imaging was obtained in the horizontal long, vertical long, and short axis views. The patient underwent pharmacologic (Regadenoson) evaluation with a peak heart rate of 122 beats per minute (85% percent predicted maximal heart rate) and a peak blood pressure of 152/78 mmHg. The patient was injected with 34.5 millicuries of technetium 99m Cardiolite and subsequently stress SPECT Cardiolite nuclear imaging was obtained in the horizontal long, vertical long, and short axis views. A gated Cardiolite study at peak stress was obtained. Interpretation: Rest and stress SPECT Cardiolite nuclear imaging status post realignment, normalization, and attenuation correction demonstrate the appearance of extracardiac/gastrointestinal tracer uptake near the inferior segments and the appearance of diminished myocardial perfusion/tracer uptake in portions of the basal inferior segments at both rest and stress and status post-rest the appearance of diminished myocardial perfusion/tracer uptake in portions of the mid inferior lateral segments. There is diminished end-systolic thickening and brightening in the aforementioned area. The gated current study demonstrates diminished myocardial thickening and inward wall motion in the basal inferior segments. The reported LVEF is 61%. Impression: 1. Rest and stress SPECT her nuclear imaging study demonstrate microperfusion changes appearing compatible with an area of previous myocardial injury/infarction involving portions of the basal inferior segments and post- rest myocardial perfusion changes appearing concerning for an area of stress- induced myocardial ischemia in portions of the mid inferolateral segments. 2. The gated Cardiolite study reports an LVEF of 61%. This note was generated with [employer] software. It may contain incorrect words, spelling, and punctuation that were not noted in checking the note before signing.
== END 2021-07-24 23:59 | disposition home or self-care (01) ==
PROVIDERS: PCP Family Medicine; Referring Provider Physician Assistant Medical; Visit Provider Physician Assistant Medical
DX: I25.10 Atherosclerotic heart disease of native coronary artery without angina pectoris (principal)
CPT/HCPCS: 78452; 93017; A9500; A4216; J2785

== ENCOUNTER 2021-08-18 07:28 | Day surgery (SDC) | payer MEDICARE, SELFPAY ==
[2016-08-09 08:56] VITALS: BMI 28.8
--- NOTE | 2021-08-06 11:59 | RAD_ITS ---
STUDY: X-RAY CHEST REASON FOR EXAM: Male, 75 years old. cad TECHNIQUE: PA and lateral views of the chest. COMPARISON: None. FINDINGS: Valvular hardware is noted. Median sternotomy wires. The lungs are clear and expanded. There is no demonstrated pleural abnormality. Normal size heart. Normal mediastinum and catina. Normal visualized pulmonary arteries. Normal visualized aortic arch and descending thoracic aorta. Normal visualized thoracic spine. Normal visualized ribs, clavicles, and shoulders. There is no demonstrated abnormality of the visualized soft tissue structures of the upper abdomen. RAD/Chest PA and Lateral IMPRESSION: No acute cardiopulmonary process identified. Electronically Signed: Gerald Logan MD at 15:23 EDT ,
[2021-08-06 13:34] LABS: Absolute Lymphocyte Count 0.99 X10^3/uL (0.83-4.51); Absolute Neutrophil Count 4.6 X10^3/uL (2.0-7.7); Basophil# 0.03 X10^3/uL; Basophil% 0.4 % (0-1); Eosinophil# 0.21 X10^3/uL; Eosinophils% 3.1 % (0-5); Lymphocyte # 0.99 X10^3/ul (0.83-4.51); Lymphocyte % 14.8 % (19-41); Mean Corp Hgb Conc 30.8 g/dL (32-36); Mean Corpuscular Hgb 26.2 pg (27.0-32.0); Mean Corpuscular Volume 85.2 fL (80-94); Mean Platelet Vol. 10.3 fl (6.2-12.0); Monocyte# 0.82 X10^3/uL; Monocyte% 12.3 % (0-10); NRBC Flagged by Analyzer 0 % (0-5); Neutrophil % 69.1 % (47-70); Platelet Count 260 K/mm3 (150-450); RBC Distribution Width CV 14.7 % (11.6-14.6); Red Blood Count 4.58 M/mm3 (4.6-6.2); White Blood Count 6.7 K/mm3 (4.4-11.0)
[2021-08-06 13:48] LABS: International Normalized Ratio 1.1; Prothrombin Time (Protime)PT. 13.6 SECONDS (11.7-14.9)
[2021-08-06 13:49] LABS: Partial Thromboplast Time 31.4 Seconds (24.1-36.2)
[2021-08-06 13:56] LABS: Anion Gap 2 (5-15); BUN 12 mg/dL (7-18); BUN/Creat Ratio 10.7 RATIO (10-20); Calcium,Total 8.9 mg/dL (8.5-10.1); Chloride 109 mmol/L (98-107); Creatinine, Serum 1.12 mg/dL (0.70-1.30); EST Glomerular Filtration Rate 67 mL/min (>60); Est Glom Filt Rate - Afr Amer 82 mL/min (>60); Glucose 93 mg/dL (74-106); Potassium 3.9 mmol/L (3.5-5.1); Sodium Level 139 mmol/L (136-145)
[2021-08-17 08:18] VITALS: BMI 26.8
--- NOTE | 2021-08-18 07:55 | PCM.HP.BLA ---
History and Physical Date of Admission: 08/18/21 [facility] [address], [place] [phone] OFFICE VISITDate of Service: 08/06/21 MR#:[id number]: ALE RIVASRep #:[id number] Provider: ROGER Lopez/Sex: 75/M [facility] HPI History of Present Illness Surgical H&P: Yes Details: This is a 75-year-old white male who presents today and updated HPI for an abnormal stress test. He does have a history of underlying CAD, status post LCx PCI, status post mitral valve repair with a P2 scallop quadrangular resection and a number 26 mm Guilherme Ross annuloplasty band, status post a left atrial appendage occlusion with a 40 mm atrial clip (per Javier Caicedo MD at [facility] in [place], [place]-2017), superimposed upon chronic diastolic mediated CHF, hyperlipidemia and hypertension. Patient was in our office earlier this year for routine follow-up, it has been greater than 5 years since he has had a stress test, this was noted to be abnormal. He is here today to discuss these results and to schedule for a diagnostic heart catheterization. From a cardiac standpoint, patient is doing well. He does not have any chest discomfort/heaviness/tightness. His exercise tolerance is stable for his age. He does not have any worsening symptoms of shortness of breath. He denies any PND. He does not have any orthopnea. He does not have any symptoms of congestive heart failure. He does not have any palpitations that he is aware of. He does occasionally have positional dizziness. He does sometimes have low BP readings, this does not happen often. He does not have any near-syncope or syncope. He does not have any lower extremity edema. He does not have any symptoms of claudication. Intake Vital Signs 08/06/21 11:34 Height 5 ft 5 in Weight: 161 lb BMI 26.8 BP 140/70 H Pulse 80 Intake Visit Reasons: DISCUSS CATH Allergies No Known Allergies Allergy (Verified 04/21/21 12:59) Medications atorvastatin 80 mg tablet 80 mg PO QHS #90 tab 04/26/18 [Rx Confirmed 08/06/21] metoprolol tartrate 25 mg tablet 12.5 mg PO BID #90 tab 04/26/18 [Rx Confirmed 08/06/21] losartan 25 mg tablet 25 mg PO DAILY 11/23/18 [History Confirmed 08/06/21] amlodipine 5 mg tablet 5 mg PO .every other day tab 09/17/20 [History Confirmed 08/06/21] esomeprazole magnesium 20 mg capsule,delayed release 20 mg PO .COMPLEX 09/17/20 [History Confirmed 08/06/21] ferrous sulfate 325 mg (65 mg iron) tablet 325 mg PO DAILY 09/17/20 [History Confirmed 08/06/21] latanoprost 0.005 % eye drops 1 drp OPHTHALMIC (EYE) QPM 09/17/20 [History Confirmed 08/06/21] amoxicillin 500 mg tablet 2,000 mg PO .COMPLEX #4 tab 09/30/20 [Rx Confirmed 08/06/21] aspirin 81 mg tablet,delayed release 81 mg PO DAILY #90 tab 04/21/21 [Rx Confirmed 08/06/21] levothyroxine 25 mcg tablet 75 mcg PO .every other day tab 04/21/21 [History Confirmed 08/06/21] [facility] Medical History Atherosclerosis of coronary artery of [place] heart without angina pectoris Chronic diastolic (congestive) heart failure Essential hypertension GERD (gastroesophageal reflux disease) Hyperlipemia Iron deficiency anemia Mixed hyperlipidemia Non-ST elevated myocardial infarction Nonrheumatic mitral (valve) insufficiency Right bundle branch block Surgical History History of colonoscopy History of coronary artery stent placement (08/07/16) History of hernia repair History of mitral valve repair (01/19/17) History of right and left heart catheterization (12/15/16) S/P laparoscopic cholecystectomy Family History Mother CVA (cerebral vascular accident) Brain tumor (benign) Hypertension Social History Smoking Status: Never smoker alcohol intake: never substance use type: does not use caffeine: Yes what type of physical activity do you participate in: bicycling frequency: daily seatbelt use: always ROS Const Const: Negative for fatigue, weakness, headache(s), frequent falls, excessive sweating, weight gain or weight loss Eyes Eyes: Negative for blind spots, loss of peripheral vision, transient loss of vision, blurry vision, change in vision or double vision ENT ENT: Positive for dizziness; Negative for headache(s), tinnitus, Nosebleed/epistaxis or balance problems Cardio Chest Pain: No Palpitations: No Edema: None Muscle aches with walking: None Resp Respiratory: Negative for SOB with activity, SOB at rest, SOB orthopnea\SOB lying down or Cough GI GI: Negative nausea, vomiting, heartburn, bloating, vomiting blood/hematemesis, bright, red blood in stools or black,tarry stools : Negative for hematuria Musc Musc: Negative for muscle aches/ myalgia, muscle weakness, joint pain or balance problems Skin Skin: Negative rash or wounds Neuro Neuro: Positive for dizziness; Negative for lightheadedness, near syncope, syncope, orthostatic symptoms, frequent falls, headache(s), weakness, confusion, memory loss, restless legs, blurry vision or double vision Saeed Hematologic/Lymphatic: Negative for easy bleeding or easy bruising Endo Endo: Negative for fatigue, cold intolerance, heat intolerance or excessive sweating Psych Psych: Negative for anxiety or depression Allergy Allergy/Immunology: Negative for rash Supplemental Info Supplemental Information Transthoracic echocardiogram: 12-27-2019 Interpretation Summary The study was technically difficult. Mild segmental systolic dysfunction (see wall motion). The estimated ejection fraction is 40 %. The left atrium is mildly enlarged. An annuloplasty ring is noted in the mitral position. Mild mitral valve stenosis. Trivial transvalvular insufficiency of the mitral valve. Trivial tricuspid valve insufficiency. Trivial pulmonic valve insufficiency. Unable to estimate RV systolic pressure/pulmonary artery pressure due to technically difficult study. Diastolic function is indeterminate. Stress Test Report Date: 07-24-2021 Procedure: Pharmacologic stress nuclear imaging study Indications: CAD, status post PCI, status post mitral valve repair, status post left atrial appendage occlusion, chronic diastolic mediated CHF, hyperlipidemia, hypertension Consent: Per the patient Procedure: The patient underwent pharmacologic (Regadenoson 0.4mg ) evaluation with a peak heart rate of 122 beats per minute (85%predicted maximal heart rate) and a peak blood pressure of 152/78 mmHg. The baseline ECG demonstrated sinus rhythm; right bundle branch block. The peak pharmacologic ECG demonstrated no obvious ECG changes. There were no cardiac dysrhythmias pretest, during pharmacologic infusion, or recovery. There was no complaint of chest discomfort during pharmacologic infusion or recovery. The examination was discontinued secondary to completion of protocol. Impression: 1. Pharmacologic (Regadenoson) evaluation 2. Peak pharmacologic ECG with continued sinus rhythm with right bundle branch block with no obvious ECG changes. 3. There were no cardiac dysrhythmias pretest, during pharmacologic infusion, or recovery. 4. Nuclear images pending Myocardial perfusion imaging study: Technique: The patient was injected with 11.2 millicuries of technetium 99m Cardiolite and subsequently rest SPECT Cardiolite nuclear imaging was obtained in the horizontal long, vertical long, and short axis views. The patient underwent pharmacologic (Regadenoson) evaluation with a peak heart rate of 122 beats per minute (85% percent predicted maximal heart rate) and a peak blood pressure of 152/78 mmHg. The patient was injected with 34.5 millicuries of technetium 99m Cardiolite and subsequently stress SPECT Cardiolite nuclear imaging was obtained in the horizontal long, vertical long, and short axis views. A gated Cardiolite study at peak stress was obtained. Interpretation: Rest and stress SPECT Cardiolite nuclear imaging status post realignment, normalization, and attenuation correction demonstrate the appearance of extracardiac/gastrointestinal tracer uptake near the inferior segments and the appearance of diminished myocardial perfusion/tracer uptake in portions of the basal inferior segments at both rest and stress and status post-rest the appearance of diminished myocardial perfusion/tracer uptake in portions of the mid inferior lateral segments. There is diminished end-systolic thickening and brightening in the aforementioned area. The gated current study demonstrates diminished myocardial thickening and inward wall motion in the basal inferior segments. The reported LVEF is 61%. Impression: 1. Rest and stress SPECT her nuclear imaging study demonstrate microperfusion changes appearing compatible with an area of previous myocardial injury/infarction involving portions of the basal inferior segments and post-rest myocardial perfusion changes appearing concerning for an area of stress-induced myocardial ischemia in portions of the mid inferolateral segments. 2. The gated Cardiolite study reports an LVEF of 61%. Labs: No Data to Display Diagnostics: Electrocardiogram Echocardiogram Stress Test NM Stress Test Chest X-Ray Pulmonary: No Data to Display Assessment and Plan Assessment and Plan (1) Atherosclerosis of coronary artery of [place] heart without angina pectoris: Status: Chronic Qualifiers: Coronary Disease-Associated Artery/Lesion type: [place] artery Qualified Code(s): I25.10 - Atherosclerotic heart disease of [place] coronary artery without angina pectoris Comment: PCI-JOSHUA-Mid Cx w/ 4.0 x 20 mm and 4.0 x 16 mm Synergy MR JOSHUA 08/07/16 Orders: Orders: Left Heart Cath/COR/LV Percut Today Prothrombin Time w/INR Today Plan: With patient's abnormal stress test he will proceed with a diagnostic heart catheterization. Instructions were given to him. At this time he will continue with present medications he is not on an antiplatelet platelet however he is on aspirin. Patient Instructions: Your procedure is schedule for 08/18 at 0900, you will arrive at 0730 Nothing to eat or drink after midnight With a small sip of water take your morning medications. You will need a goat driver. If you need a stent you will spend the night. Get your labs and CXR done this week. (2) History of mitral valve repair: Status: Chronic Comment: MVR w/ Quadrangular resection of the P2 scallop and placement of a 26 mm Guilherme EdwardsAnnuloplasty Band w/ PENELOPE Occlusion using a 40mm AtriClip 01/19/2017 Naif Caicedo Plan: Reviewed echocardiogram from 2019. Valve is stable. He is aware of antibiotic prophylaxis. (3) Chronic diastolic (congestive) heart failure: Status: Chronic Plan: Patient does not have any symptoms of congestive heart failure. We will continue with current medical management. (4) Essential hypertension: Status: Acute Plan: Blood pressure is well controlled on current medications, we do not recommend any changes at this time. (5) Hyperlipemia: Status: Chronic Qualifiers: Hyperlipidemia type: unspecified Qualified Code(s): E78.5 - Hyperlipidemia, unspecified Orders: Orders: CBC W/Diff, Automated Today Plan: Lipids are managed by primary care doctor. Will not make any adjustments. Plan Details Other Orders: Orders: Left Heart Cath/COR/LV Percut Today R94.39 Basic Metabolic Profile (BMP) Today R94.39 Partial Thromboplast Time Today I21.4, R94.39 Prothrombin Time w/INR Today R94.39 CBC W/Diff, Automated Today R94.39 Chest PA and Lateral Today R94.39 Additional Comments: Thank you for allowing me to participate in the care of your patient. Please don't hesitate to call if any issues arise. This note was generated using a voice recognition system and there may be incorrect words, spelling or punctuation that were not noted when reviewing the office note prior to saving. Coding Level of Care Code Off vis,est,level 4 Diagnoses Atherosclerosis of coronary artery of [place] heart without angina pectoris I25.10 Coronary Disease-Associated Artery/Lesion type: [place] artery History of mitral valve repair Z98.890 Chronic diastolic (congestive) heart failure I50.32 Essential hypertension I10 Hyperlipemia E78.5 Hyperlipidemia type: unspecified Coding Level of Care Code Off vis,est,level 4 Diagnoses Atherosclerosis of coronary artery of [place] heart without angina pectoris I25.10 Coronary Disease-Associated Artery/Lesion type: [place] artery History of mitral valve repair Z98.890 Chronic diastolic (congestive) heart failure I50.32 Essential hypertension I10 Hyperlipemia E78.5 Hyperlipidemia type: unspecified 08/06/21 1151<Electronically signed by Annabelle DURAN>Date Annabelle DURAN Cosigner Signature:Date (if applicable) CC: Dr. Javier Silvestre MD ~ Assessment & Plan Addt'l Comments I have re-examined the patient. There are no clinical changes since date of exam
--- NOTE | 2021-08-18 09:40 | CL.D_ITS ---
Patient Name: ALE RIVAS Study Date: 08/18/2021 Performing: Jaguar Danielson MD Ht: 64.96 inches 165 cm : 1945 Wt: 160.94 lbs 73 kg Age: 76 Gender: male BSA: 1.8 PROCEDURE(S) PERFORMED DC01-(38935)LHC/COR/LV CLINICAL PROFILE AND INDICATIONS Indications: Suspected CAD, Valvular Disease, LV Dysfunction Heart Failure: None Stress/Imaging Date: 07/24/2021tress Test with SPECT MPI: Positive Intermediate Risk Angina Classification Anginal Classification w/in 2 Weeks: Anginal Equivalent Dyspnea CAD Presentations: Other: dyspnea on exertion CONCLUSIONS Elevated Left Ventricular End Diastolic Pressure Segmented LV systolic dysfunction- Mild LVEF: by LV gram 50 % [place] Multivessel CAD LCX: stent: patent MV annuloplasty ring: present Left atrial appendage clip: present RECOMMENDATIONS Risk factor modification Medical therapy DESCRIPTION OF PROCEDURE The patient arrived to the procedure lab. The risks and benefits of the procedure as well as a full d escription of our services here and current unavailability of surgical backup were fully explained to the patient and/or their significant other prior to the catheterization. The Timeout was completed, verifying the correct patient and procedure. The patient's procedural site was prepped and draped in the usual fashion. Local anesthetic was given subcutaneously to right radial region with Lidocaine 2% . Using a modified Seldinger technique, arterial access was obtained via the right radial artery, a 6 Fr sheath was inserted. Right Coronary Artery selective angiography was then performed in multiple v iews using a 5 Fr. 4.0 [place] catheter. Left Coronary Artery selective angiography was performed in mu ltiple views using a 5 Fr. 4.0 [place] catheter. Left Ventriculography was performed in ABDI projection using a 5 Fr. [place] catheter. LV to AO pullback pressures were then recorded.The arterial sheath was pulled and a TR Band was applied for hemostasis CORONARY ANGIOGRAPHY DOMINANCE: Left Dominant LEFT HEART ASSESSMENT Left Ventricular Ejection Fraction: by LV Gram 50 % Inferior Basal Akinesis. Inferior Mid Hypokinesis Elevated Left Ventricular End Diastolic Pressure LVEDP: 19 mmHg Left atrial appendage clip: present LEFT MAIN: Angiographically normal LEFT ANTERIOR DESCENDING ARTERY: Mild luminal irregularities CIRCUMFLEX ARTERY: Mild luminal irregularities PROX CIRC: Previously placed stent is patent OM 1: small caliber vessel: proximal: diffuse: 50 % Stenosis OM 2: s/p stent: proximal - is occluded RIGHT CORONARY ARTERY: small: non dominant Mild luminal irregularities VALVE FINDINGS: MV annuloplasty ring: present AORTIC ROOT: Angiographically normal COMPLICATIONS No Complications PROCEDURE MEDICATIONS Versed 1 mg IV Fentanyl 50 mcg IV Fentanyl 50 mcg IV Versed 1 mg IV Baby Aspirin (81mg) 1 Tabs PO @ 08/18/2021 07:53:59 Heparin given IA 08/18/2021 08:52:02 Verapamil 2.5mg, Ntg 100mcgs, 3000 units of Heparin given IA 08/18/2021 08:52:02 SUMMARY OF HEMODYNAMIC DATA Time AIR REST ECG 07:55:57 ECG 08:29:57 Art 197/79 (119) 08:46:44 AO 118/66 (93) SA 08:54:47 AO 122/74 (98) 08:55:09 LV 130/2, 22 09:02:54 LV 125/2, 19 09:03:02 LV 130/2, 15 09:04:04 LVp 129/1, 17 09:04:17 AOp 135/61 (93) 09:04:24 AO 134/61 (93) 09:04:27 Signed By Jaguar Danielson MD On 08/18/2021 09:38:53 Jaguar Danielson MD
== END 2021-08-18 11:25 | disposition home or self-care (01) ==
LOC: CLSP 07:29
PROVIDERS: Physician Assistant Medical; PCP Family Medicine; Referring Provider Internal Medicine Cardiovascular Disease; Visit Provider Internal Medicine Cardiovascular Disease
DX: I25.118 Atherosclerotic heart disease of native coronary artery with other forms of angina pectoris (principal); I11.0 Hypertensive heart disease with heart failure; I50.32 Chronic diastolic (congestive) heart failure; E78.5 Hyperlipidemia, unspecified; I25.2 Old myocardial infarction; Z79.82 Long term (current) use of aspirin; Z79.899 Other long term (current) drug therapy; Z95.5 Presence of coronary angioplasty implant and graft
CPT/HCPCS: 36415; 71046; 80048; 85025; 85610; 85730; 93458; 99152; 99153; J7030; C1769; C1894; Q9967

== ENCOUNTER 2022-05-13 09:16 | Day surgery (SDC) | payer MEDICARE, SELFPAY ==
[2016-08-09 08:56] VITALS: BMI 28.8
[2022-05-13] VITALS (8 sets, daily range): BP systolic 77–144; BP diastolic 51–74; PULSE 75–84; RESP 16–18; TEMP 36.1–36.6; O2SAT 93–99; BMI 26.8
[2022-05-13] MEDS: Lactated Ringers 1,000 ML 15 ML IV (09:46)
--- NOTE | 2022-05-13 10:09 | PCM.HP.BLA ---
History and Physical Date of Admission: 05/13/22 76 M who presents to the office today for iron deficiency anemia and positive celiac test. Because of his iron deficiency anemia he was tested for celiac disease; tissue transglutaminase IgA 9 (weak positive) with normal IgA 295. No hx of GI bleed. He is taking an iron supplement. He has no GI complaints, other than occasional gas. Gets acid reflux if he misses esomeprazole. Denies nausea, vomiting, early satiety, dysphagia, abdominal pain, diarrhea, constipation, melena, hematochezia.? 09/2021 Labs: Vitamin B12 258 TSH 3.03 hgb 12 11/2021 Labs: hgb 11.9 iron 40 ferritin 30 Vitamin B12 1051 TSH 2.7 08/[address] Canchola, diverticula but otherwise normal EGD maybe 6 yrs ago ROS Const Constitutional: No fatigue ENT ENT: No difficulty swallowing Gastro GI: Positive for bloating and excessive flatus; No abdominal pain, belching, change in bowel habits, change in stool character, coffee ground emesis, constipation, cramping, diarrhea, heartburn, difficulty swallowing, feeling full early, incontinent of stools, Vomiting blood/hematemesis, Blood in stool, loose stools, Black,tarry stools, nausea/dyspepsia, pain with swallowing, vomiting or other Musc Musculoskeletal: No joint pain Skin Skin: No yellowing of the eye or itchy eyes Psych Psychiatric: No anxiety and No depression Endo Endocrine: No fatigue Aller/Imm Allergy/Immunologic: No itchy eyes Saeed/Lymp Hematologic/Lymphatic: No easy bleeding or easy bruising Exam Const General: cooperative, healthy appearing and comfortable Nutritional Appearance: average body habitus Orientation: alert, awake and oriented x3 HENMT Head: normal to inspection Eyes Conjunctivae: conjunctivae normal Sclera: sclerae normal Resp Effort & Inspection: normal respiratory effort GI Inspection: normal to inspection Quality Reporting Tobacco Screening ([facility] 138) Smoking Status: Never smoker Assessment and Plan Assessment and Plan (1) Iron deficiency anemia: ?Status:?Chronic ?Plan: 76 yr old male with iron deficiency anemia, positive blood test for celiac disease. Discussed with pt and his anemia, celiac disease, workup. We will get EGD, colonoscopy,? and capsule endoscopy at same time if ok'd by insurance. Will have f/u 2 wks after endoscopies to discuss results. (2) Celiac disease: ?Status:?Acute ?Plan: I have examined the patient and the H&P has been reviewed. There are no clinical changes since date of exam.
--- NOTE | 2022-05-13 11:09 | OP.EGD_ITS ---
Patient Name: Iron Bass Procedure Date: 05/13/2022 10:35 AM Date of : 1945 Age: 76 Procedure: Upper GI endoscopy Indications: Iron deficiency anemia Providers: Ramon Alcaraz DO Referring MD: Ramon Alcaraz DO Medicines: Monitored Anesthesia Care Patient Profile: This is a 76 year old male. Refer to note in patient chart for documentation of history and physical. Patient has symptoms of chronic epigastric abdominal pain and chronic dyspepsia. Complications: No immediate complications. Procedure: Pre-Anesthesia Assessment: - Prior to the procedure, a History and Physical was performed, and patient medications and allergies were reviewed. The risks and benefits of the procedure and the sedation options and risks were discussed with the patient. All questions were answered and informed consent was obtained. Patient identification and proposed procedure were verified by the physician in the pre-procedure area. Mental Status Examination: alert and oriented. Airway Examination: normal oropharyngeal airway and neck mobility. Respiratory Examination: clear to auscultation. CV Examination: normal. Prophylactic Antibiotics: The patient does not require prophylactic antibiotics. Prior Anticoagulants: The patient has taken no previous anticoagulant or antiplatelet agents. ASA Grade Assessment: II - A patient with mild systemic disease. After reviewing the risks and benefits, the patient was deemed in satisfactory condition to undergo the procedure. The anesthesia plan was to use monitored anesthesia care (MAC). Immediately prior to administration of medications, the patient was re-assessed for adequacy to receive sedatives. The heart rate, respiratory rate, oxygen saturations, blood pressure, adequacy of pulmonary ventilation, and response to care were monitored throughout the procedure. The physical status of the patient was re-assessed after the procedure. After obtaining informed consent, the endoscope was passed under direct vision. Throughout the procedure, the patient's blood pressure, pulse, and oxygen saturations were monitored continuously. The colonoscope was introduced through the mouth, and advanced to the second part of duodenum. The upper GI endoscopy was accomplished without difficulty. The patient tolerated the procedure well. Scope In: 10:40:32 AM Scope Out: 10:52:31 AM Total Procedure Duration Time 0 hours 11 minutes 59 seconds Findings: The examined esophagus was normal. A small hiatal hernia was present. A single 5 mm angiodysplastic lesion with bleeding was found in the duodenal bulb. Coagulation for hemostasis using bipolar probe was successful. Using the endoscope, the video capsule enteroscope was advanced into the second portion of the duodenum. 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 Impression: - Normal esophagus. - Small hiatal hernia. 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 Treated with bipolar cautery. - Successful completion of the Video Capsule Enteroscope placement. - No specimens collected. Recommendation: - Discharge patient to home. - Resume previous diet. - Continue present medications. Procedure Code(s): --- Professional --- 87585, Esophagogastroduodenoscopy, flexible, transoral; with control of bleeding, any method CPT copyright 2017 [employer]. All rights reserved. The codes documented in this report are preliminary and upon fumigator and sterilizer review may be revised to meet current compliance requirements. Ramon Alcaraz DO 05/13/2022 11:09:19 AM This report has been signed electronically. Number of Addenda: 0 Note Initiated On: 05/13/2022 10:35 AM
--- NOTE | 2022-05-13 11:10 | OP.CCLET_ITS ---
05/13/2022 Javier Silvestre Re : Upper GI endoscopy procedure for Iron Bass Dear Konrad This procedure was performed on May. My impressions and recommendations are as follows: Impressions : - Normal esophagus. - Small hiatal hernia. 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 Treated with bipolar cautery. - Successful completion of the Video Capsule Enteroscope placement. - No specimens collected. Recommendations : - Discharge patient to home. - Resume previous diet. - Continue present medications. My findings are described in the full procedure note, which is enclosed. If I can be of further assistance, please feel free to contact me at . Sincerely, Ramon Alcaraz, 05/13/2022 11:09:19 AM This report has been signed electronically.
--- NOTE | 2022-05-13 11:13 | OP.COLON_ITS ---
Patient Name: Iron Bass Procedure Date: 05/13/2022 10:52 AM Date of : 1945 Age: 76 Procedure: Colonoscopy Indications: Iron deficiency anemia Providers: Ramon Alcaraz DO Referring MD: Ramon Alcaraz DO Medicines: Monitored Anesthesia Care Patient Profile: This is a 76 year old male. Refer to note in patient chart for documentation of history and physical. Patient has symptoms of chronic epigastric abdominal pain and chronic dyspepsia. Last Colonoscopy: 5 years ago. Complications: No immediate complications. Procedure: Pre-Anesthesia Assessment: - Prior to the procedure, a History and Physical was performed, and patient medications and allergies were reviewed. The risks and benefits of the procedure and the sedation options and risks were discussed with the patient. All questions were answered and informed consent was obtained. Patient identification and proposed procedure were verified by the physician in the pre-procedure area. Mental Status Examination: alert and oriented. Airway Examination: normal oropharyngeal airway and neck mobility. Respiratory Examination: clear to auscultation. CV Examination: normal. Prophylactic Antibiotics: The patient does not require prophylactic antibiotics. Prior Anticoagulants: The patient has taken no previous anticoagulant or antiplatelet agents. ASA Grade Assessment: II - A patient with mild systemic disease. After reviewing the risks and benefits, the patient was deemed in satisfactory condition to undergo the procedure. The anesthesia plan was to use monitored anesthesia care (MAC). Immediately prior to administration of medications, the patient was re-assessed for adequacy to receive sedatives. The heart rate, respiratory rate, oxygen saturations, blood pressure, adequacy of pulmonary ventilation, and response to care were monitored throughout the procedure. The physical status of the patient was re-assessed after the procedure. After I obtained informed consent, the scope was passed under direct vision. Throughout the procedure, the patient's blood pressure, pulse, and oxygen saturations were monitored continuously. The colonoscope was introduced through the anus and advanced to the cecum, identified by appendiceal orifice and ileocecal valve. The colonoscopy was performed without difficulty. The patient tolerated the procedure well. The quality of the bowel preparation was adequate. Scope In: 10:55:13 AM Scope Withdrawal Time 0 hours 5 minutes 1 second Scope Out: 11:02:22 AM Total Procedure Duration Time 0 hours 7 minutes 9 seconds Findings: The perianal and digital rectal examinations were normal. Multiple small-mouthed diverticula were found in the recto-sigmoid colon, sigmoid colon and descending colon. The exam was otherwise without abnormality on direct and retroflexion views. Impression: - Diverticulosis in the recto-sigmoid colon, in the sigmoid colon and in the descending colon. - The examination was otherwise normal on direct and retroflexion views. - No specimens collected. Recommendation: - Discharge patient to home. - Resume previous diet. - Continue present medications. - No repeat colonoscopy due to age. Procedure Code(s): --- Professional --- 90970, Colonoscopy, flexible; diagnostic, including collection of specimen(s) by brushing or washing, when performed (separate procedure) CPT copyright 2017 [employer]. All rights reserved. The codes documented in this report are preliminary and upon retail store assistant review may be revised to meet current compliance requirements. Ramon Alcaraz DO 05/13/2022 11:12:41 AM This report has been signed electronically. Number of Addenda: 0 Note Initiated On: 05/13/2022 10:52 AM
--- NOTE | 2022-05-13 11:13 | OP.CCLET_ITS ---
05/13/2022 Javier Silvestre Re : Colonoscopy procedure for Iron Bass Dear Konrad This procedure was performed on May. My impressions and recommendations are as follows: Impressions : - Diverticulosis in the recto-sigmoid colon, in the sigmoid colon and in the descending colon. - The examination was otherwise normal on direct and retroflexion views. - No specimens collected. Recommendations : - Discharge patient to home. - Resume previous diet. - Continue present medications. - No repeat colonoscopy due to age. My findings are described in the full procedure note, which is enclosed. If I can be of further assistance, please feel free to contact me at . Sincerely, Ramon Alcaraz, 05/13/2022 11:12:41 AM This report has been signed electronically.
== END 2022-05-13 12:44 | disposition home or self-care (01) ==
LOC: EN 09:23 → AC 09:23
PROVIDERS: PCP Family Medicine; Referring Provider Internal Medicine Gastroenterology; Visit Provider Internal Medicine Gastroenterology
PROC: 0DJD8ZZ Inspection of Lower Intestinal Tract, Via Natural or Artificial Opening Endoscopic (ICD-10-PCS; CPT 45378; principal; 2022-05-13 10:25)
DX: K31.819 Angiodysplasia of stomach and duodenum without bleeding (principal); I11.0 Hypertensive heart disease with heart failure; I50.32 Chronic diastolic (congestive) heart failure; K44.9 Diaphragmatic hernia without obstruction or gangrene; D50.9 Iron deficiency anemia, unspecified; K57.30 Diverticulosis of large intestine without perforation or abscess without bleeding; K90.0 Celiac disease; K21.9 Gastro-esophageal reflux disease without esophagitis; I25.10 Atherosclerotic heart disease of native coronary artery without angina pectoris; I25.2 Old myocardial infarction; E78.5 Hyperlipidemia, unspecified; Z95.5 Presence of coronary angioplasty implant and graft; Z79.82 Long term (current) use of aspirin; Z79.899 Other long term (current) drug therapy
CPT/HCPCS: 45378; 43235; 43255; J7120; J2405

== ENCOUNTER → 2022-05-17 | Outpatient (CLI) | payer MEDICARE, SELFPAY ==
[2016-08-09 08:56] VITALS: BMI 28.8
[2022-05-17 13:09] LABS: ALB/GLOB Ratio 0.8 RATIO (0.9-2.4); AST(SGOT) 38 U/L (15-37); Alanine Aminotransfer ALT/SGPT 30 U/L (16-61); Albumin, Serum 3.4 g/dL (3.2-5.0); Alkaline Phosphatase 96 U/L (45-117); Anion Gap 4 (5-15); BUN 12 mg/dL (7-18); BUN/Creat Ratio 10.4 RATIO (10-20); Calcium,Total 8.4 mg/dL (8.5-10.1); Chloride 108 mmol/L (98-107); Cholesterol 105 mg/dL (200); Creatinine, Serum 1.15 mg/dL (0.70-1.30); EST Glomerular Filtration Rate 65 mL/min (>60); Est Glom Filt Rate - Afr Amer 79 mL/min (>60); Globulin 4.1 g/dL (2.2-4.2); Glucose 88 mg/dL (74-106); High Density Lipoprotein 46 mg/dL; Potassium 4.2 mmol/L (3.5-5.1); Protein, Total 7.5 g/dL (6.4-8.2); Sodium Level 140 mmol/L (136-145); Triglycerides 107 mg/dL; Very Low Density Lipoprotein 21 mg/dL (5-40)
== END | disposition home or self-care (01) ==
PROVIDERS: PCP Family Medicine; Referring Provider Physician Assistant Medical; Visit Provider Physician Assistant Medical
DX: I25.10 Atherosclerotic heart disease of native coronary artery without angina pectoris (principal); I10 Essential (primary) hypertension; E78.5 Hyperlipidemia, unspecified
CPT/HCPCS: 36415; 80053; 80061

== ENCOUNTER → 2022-05-28 | Outpatient (CLI) | payer MEDICARE, SELFPAY ==
[2016-08-09 08:56] VITALS: BMI 28.8
[2022-05-28 16:58] LABS: Absolute Lymphocyte Count 1.08 X10^3/uL (0.83-4.51); Basophil# 0.03 X10^3/uL; Basophil% 0.5 % (0-1); Eosinophil# 0.29 X10^3/uL; Eosinophils% 4.9 % (0-5); Hematocrit 41.2 % (40-54); Lymphocyte # 1.08 X10^3/ul (0.83-4.51); Lymphocyte % 18.2 % (19-41); Mean Corp Hgb Conc 31.6 g/dL (32-36); Mean Corpuscular Volume 85.5 fL (80-94); Mean Platelet Vol. 10.1 fl (6.2-12.0); Monocyte# 0.54 X10^3/uL; Monocyte% 9.1 % (0-10); NRBC Flagged by Analyzer 0 % (0-5); Neutrophil # 3.96 X10^3/uL (2.7-7.7); Platelet Count 256 K/mm3 (150-450); RBC Distribution Width CV 13.2 % (11.6-14.6); RBC Distribution Width SD 41.2 fl (35.1-43.9); Red Blood Count 4.82 M/mm3 (4.6-6.2); White Blood Count 5.9 K/mm3 (4.4-11.0)
[2022-05-28 17:08] LABS: Erythrocyte Sedimentation Rate 22 mm/hr (0-20)
[2022-05-28 17:10] LABS: International Normalized Ratio 1.1; Prothrombin Time (Protime)PT. 13.5 SECONDS (11.7-14.9)
[2022-05-28 17:29] LABS: CRP < 2.90 mg/L (0.0-3.0); Ferritin 15 ng/mL (26-388); Iron 77 ug/dL (65-175); Iron Binding Capacity,Total 337 ug/dL (250-450); LDH 403 U/L (87-241); PERCENT IRON SATURATION 22.8 % (15.0-55.0)
[2022-05-31 15:07] LABS: Anti-Centromere B Ab <0.2 AI (0.0-0.9); Anti-Chromatin >8.0 AI (0.0-0.9); Anti-Jo <0.2 AI (0.0-0.9); Anti-Scleroderma-70 AB <0.2 AI (0.0-0.9); RNP Ab 0.2 AI (0.0-0.9); SJOGREN'S Anti-SS-A test 6.9 AI (0.0-0.9); SJOGREN'S Anti-SS-B test < 0.2 AI (0.0-0.9); Smith Ab 0.2 AI (0.0-0.9)
[2022-05-31 19:21] LABS: Anti-Mitochondrial AB <20.0 Units (0.0-20.0); Anti-dsDNA Ab 55 IU/mL (0-9)
[2022-06-02 00:07] LABS: Angiotensin Convert Enzyme 62 U/L (14-82); Ceruloplasmin 21.8 mg/dL (16.0-31.0); Cytoplasmic Ab (C-ANCA) <1:20 titer (Neg:<1:20); Endomysial Antibody IgA Negative (Negative); Immunoglobulin A 302 mg/dL (61-437)
[2022-06-02 20:17] LABS: AFP, Tumor Marker < 1.8 ng/mL (0.0-8.4); Anti-Smooth Muscle ABS 89 Units (0-19); Copper, Serum or Plasma 99 ug/dL (69-132); Haptoglobin < 10 mg/dL (34-355); Perinuclear Ab (P-ANCA) <1:20 titer (Neg:<1:20); t-Transglutaminase IgA 13 U/mL (0-3)
== END | disposition home or self-care (01) ==
PROVIDERS: PCP Family Medicine; Referring Provider Nurse Practitioner Adult Health; Visit Provider Nurse Practitioner Adult Health
DX: E78.2 Mixed hyperlipidemia (principal); D50.9 Iron deficiency anemia, unspecified; K31.819 Angiodysplasia of stomach and duodenum without bleeding; K52.9 Noninfective gastroenteritis and colitis, unspecified; K90.0 Celiac disease; Z98.890 Other specified postprocedural states
CPT/HCPCS: 36415; 82105; 82140; 82164; 82390; 82525; 82728; 82784; 83010; 83516; 83540; 83550; 83615; 85025; 85610; 85652; 86140; 86225; 86235; 86255; 86256

== ENCOUNTER → 2022-06-15 | Outpatient (CLI) | payer MEDICARE, SELFPAY ==
[2016-08-09 08:56] VITALS: BMI 28.8
--- NOTE | 2022-06-15 09:37 | US_ITS ---
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 TECHNIQUE: Ultrasound evaluation of the right upper quadrant was performed with real-time and static romero-scale imaging. TECHNICAL QUALITY: Adequate. COMPARISON: Comparison is made with prior study dated June 09, 2018. FINDINGS: Liver: The liver measures 13.7 cm. There is a heterogeneous echogenicity of the liver. The bile ducts are within normal limits. There is hepatic color flow. The direction of portal flow is hepatopetal. There is no demonstrated mass lesion. Gallbladder: The patient is status post cholecystectomy. Common Bile Duct (C.B.D.): The common bile duct measures 2.0 mm. Pancreas: Normal size of the head, body of the pancreas. The pancreatic tail is obscured due to overlying bowel gas. There is normal echogenicity of the pancreas. There is no demonstrated pancreatic mass or cyst. Right Kidney: Normal size of the right kidney. The right kidney measures 9.3 cm x 5.6 cm x 5.2 cm. Normal renal cortex. The right cortex measures 1.8 cm. There is no demonstrated renal mass or cyst. There is no right hydronephrosis. IMPRESSION: Heterogeneous echotexture of the liver. Status post cholecystectomy. Electronically Signed: Lebron Quintana MD at 11:05 [facility] , STUDY: ABDOMINAL ULTRASOUND - ELASTOGRAPHY REASON FOR VISIT: Male, 76 years old. GAVE TECHNIQUE: Liver stiffness measurements were obtained on a Ektron 85 ultrasound machine using a CA 1-7 probe following the SRU guidelines. 3 measurements were obtained using a 2-D-SWE method. TheIQR/M was 19% suggesting a quality data set. TECHNICAL QUALITY: Adequate. COMPARISON: Comparison is made with prior study done earlier today. FINDINGS: Liver: Heterogeneous hepatic echotexture. Median liver stiffness measured 6.6 kPa. 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 Electronically Signed: Lebron Quintana MD at 11:07 EST ,
== END | disposition home or self-care (01) ==
LOC: US 09:35
PROVIDERS: PCP Family Medicine; Referring Provider Nurse Practitioner Adult Health; Visit Provider Nurse Practitioner Adult Health
DX: K31.819 Angiodysplasia of stomach and duodenum without bleeding (principal)
CPT/HCPCS: 76705; 76981

== ENCOUNTER → 2024-06-29 | Outpatient (CLI) | payer MEDICARE, SELFPAY ==
[2016-08-09 08:56] VITALS: BMI 28.8
--- NOTE | 2024-06-29 12:56 | ECHOCS_ITS ---
Reason For Study Reason For Study: Evaluate MV repair/stability. Procedure This was a 2D Doppler, Color Flow transthoracic echocardiogram. The study was technically difficult. Contrast injection was performed. Exam performed in department. Left Ventricle Normal LV size. The left ventricular ejection fraction is 50 %. There are regional wall motion abnormalities as specified. Mid-Posterior: Hypokinetic. Posterior-Basal: Hypokinetic. Infero- Basal: Hypokinetic. Mid-Inferior: Hypokinetic. Right Ventricle Normal RV size. Normal systolic function. Atria Normal left atrium. Normal right atrium. Mitral Valve Status post mitral valve repair. Tricuspid Valve Normal tricuspid valve. Aortic Valve Trisinus/trileaflet aortic valve. Great Vessels Normal aortic root. The pulmonary artery is normal size. Normal inferior vena cava. Pericardium/Pleural No pericardial effusion. Medication 22 gauge I.V. with prn adaptor inserted into right arm. MMode/2D Measurements & Calculations LVIDd: 4.8 cm IVSd: 0.94 cm Ao root diam: 3.3 cm LVIDs: 3.9 cm LVPWd: 0.86 cm RVDd: 3.0 cm FS: 17.7 % LAV(MOD-bp): 84.9 ml LVAd ap4: 27.7 cm2 LVAd ap2: 31.3 cm2 LAV(MOD-bp) Indexed: 47.2 ml/m2 LVLd ap4: 7.4 cm LVLd ap2: 7.9 cm LAV(MOD-sp2): 82.5 ml EDV(MOD-sp4): 85.5 ml EDV(MOD-sp2): 101.6 ml LAV(MOD-sp4): 81.5 ml EDV(sp4-el): 87.8 ml EDV(sp2-el): 104.5 ml LVAs ap4: 18.9 cm2 LVAs ap2: 21.7 cm2 LVLs ap4: 7.1 cm LVLs ap2: 7.6 cm ESV(MOD-sp4): 41.7 ml ESV(MOD-sp2): 50.7 ml ESV(sp4-el): 42.5 ml ESV(sp2-el): 52.2 ml EF(MOD-sp4): 51.3 % EF(MOD-sp2): 50.1 % EF(sp4-el): 51.6 % SV(MOD-sp4): 43.9 ml SV(MOD-sp2): 50.9 ml SV(sp4-el): 45.3 ml SI(MOD-sp4): 24.4 ml/m2 SI(MOD-sp2): 28.3 ml/m2 LA A4 area: 24.5 cm2 LA dimension(2D): 5.2 cm RA A4 area: 16.8 cm2 TAPSE: 1.8 cm Time Measurements MV dec time: 0.32 sec Doppler Measurements & Calculations MV E max mickey: 171.4 cm/sec Lat Peak E' Mickey: 9.2 cm/sec Med Peak E' Mickey: 5.6 cm/sec MV A max mickey: 80.1 cm/sec E/E' lat: 18.6 E/E' med: 30.5 MV E/A: 2.1 MV V2 max: 195.5 cm/sec MV P1/2t max mickey: 197.0 cm/sec Ao V2 max: 110.0 cm/sec MV max P.3 mmHg MV P1/2t: 73.6 msec Ao max P.8 mmHg MV V2 mean: 103.3 cm/sec Ao V2 mean: 77.9 cm/sec MV mean P.0 mmHg MV dec slope: 783.9 cm/sec2 Ao mean P.7 mmHg MV V2 VTI: 43.9 cm MVA(P1/2t): 3.0 cm2 Ao V2 VTI: 24.1 cm AV (velocity ratio): 0.66 LV V1 max: 77.4 cm/sec MR max mickey: 478.8 cm/sec PA V2 max: 75.7 cm/sec LV V1 max P.4 mmHg MR max P.7 mmHg LV V1 mean P.2 mmHg MR mean mickey: 367.3 cm/sec LV V1 mean: 52.4 cm/sec MR mean P.9 mmHg LV V1 VTI: 15.9 cm MR VTI: 144.7 cm TR max mickey: 296.3 cm/sec TR max P.1 mmHg ECHO/Echo Complete W/ Contrast Interpretation Summary The left ventricular ejection fraction is 50 %. Normal LV size. There are regional wall motion abnormalities as specified. Status post mitral valve repair. Contrast injection was performed. Ordering Physician: Mj Rodriguez Referring Physician: Shar Jackson Performed By: Adwoa Allen RDCS, RVT
== END | disposition home or self-care (01) ==
LOC: CVS 12:56
PROVIDERS: PCP Hospitalist; Referring Provider Nurse Practitioner Family; Visit Provider Nurse Practitioner Family
DX: Z98.890 Other specified postprocedural states (principal)
CPT/HCPCS: 93306; Q9957; A4216; C8929